=== PATIENT | male | born 1935 | race Caucasian/White ===

== ENCOUNTER 2016-08-22 09:32 | Outpatient (CLI) | payer MEDICARE ==
[2016-08-22 09:58] LABS: Hemoglobin 9.4 g/dL (14.0-18.0); Mean Corpuscular HGB CONC 32.8 g/dL (32.0-36.0); Mean Corpuscular Hemoglobin 28.5 pg (27.0-31.0); Mean Corpuscular Volume 86.9 fl (80.0-94.0); Mean Platelet Volume 5.9 fL (7.4-10.4); Platelet Count 381 thou/uL (130-400); Red Blood Cell (RBC) Count 3.29 mill/uL (4.70-6.10); White Blood Cell (WBC) Count 5.6 thou/uL (4.8-10.8)
== END 2016-08-22 09:33 | disposition home or self-care (01) ==
LOC: MADLAB 09:32
PROVIDERS: ATTEND Internal Medicine Gastroenterology
DX: D50.0 Iron deficiency anemia secondary to blood loss (chronic) (principal)
CPT/HCPCS: 36415; 85027

== ENCOUNTER 2016-09-04 09:31 | Outpatient (CLI) | payer MEDICARE ==
[2016-09-04 10:42] LABS: #Basophils 0.1 thou/uL (0.0-0.2); #Eosinphils 0.3 thou/uL (0.0-0.7); #Lymphocytes 2.7 thou/uL (1.20-3.40); #Neutrophils 2.8 thou/uL (1.40-6.50); %Basophils 1.5 % (0.0-1.0); %Eosinophils 3.8 % (0.0-10.0); %Lymphocytes 39.3 % (21.0-51.0); %Monocytes 14.9 % (0.0-10.0); %Neutrophils 40.5 % (42.0-75.0); Hemoglobin 9.5 g/dL (14.0-18.0); Mean Corpuscular HGB CONC 31.7 g/dL (32.0-36.0); Mean Corpuscular Hemoglobin 27.1 pg (27.0-31.0); Mean Corpuscular Volume 85.3 fl (80.0-94.0); Mean Platelet Volume 6.3 fL (7.4-10.4); Platelet Count 245 thou/uL (130-400); RBC Distribution Width 14.9 % (11.5-14.5); Red Blood Cell (RBC) Count 3.53 mill/uL (4.70-6.10); White Blood Cell (WBC) Count 6.8 thou/uL (4.8-10.8)
== END 2016-09-04 09:32 ==
LOC: MADLABBHPM 09:31
PROVIDERS: ATTEND Family Medicine
DX: K92.2 Gastrointestinal hemorrhage, unspecified (principal)
CPT/HCPCS: 85025

== ENCOUNTER 2016-12-04 13:32 | Outpatient (CLI) | payer MEDICARE ==
[2016-12-04 14:19] LABS: ALT (SGPT) 17 U/L (8-55); AST (SGOT) 19 U/L (5-34); Albumin 3.8 g/dL (3.4-4.8); Alkaline Phosphatase 70 U/L (40-150); Anion Gap 13 mmol/L (10-20); BUN (Urea Nitrogen) 23 mg/dL (8.4-25.7); Bilirubin, Total 0.3 mg/dL (0.2-1.2); Calc. Creatinine Clearance 0 mL/min (70-130); Calcium 8.7 mg/dL (7.8-10.44); Carbon Dioxide 23 mmol/L (23-31); Chloride 104 mmol/L (98-107); Estimated GFR-MDRD 55; Globulin 3.8 g/dL (2.4-3.5); Glucose 112 mg/dL (83-110); Potassium 4.4 mmol/L (3.5-5.1); Protein, Total 7.6 g/dL (5.8-8.1); Sodium 136 mmol/L (136-145)
[2016-12-04 14:49] LABS: Eosinophils 1 % (0-10); Hemoglobin 13.2 g/dL (14.0-18.0); Lymphocytes 46 % (21-51); MDiff Complete? YES; Mean Corpuscular HGB CONC 33.9 g/dL (32.0-36.0); Mean Corpuscular Hemoglobin 29.7 pg (27.0-31.0); Mean Corpuscular Volume 87.7 fl (80.0-94.0); Mean Platelet Volume 7.1 fL (7.4-10.4); Monocytes 13 % (0-10); Neutrophil 40 % (42-75); PLT Morphology Comment Appears Adequate; Platelet Count 193 thou/uL (130-400); RBC Distribution Width 17.2 % (11.5-14.5); Red Blood Cell (RBC) Count 4.42 mill/uL (4.70-6.10); White Blood Cell (WBC) Count 6.1 thou/uL (4.8-10.8)
== END 2016-12-04 13:33 ==
LOC: MADLABBHPM 13:32
PROVIDERS: ATTEND Family Medicine
DX: D50.9 Iron deficiency anemia, unspecified (principal); R53.1 Weakness
CPT/HCPCS: 36415; 80053; 82728; 85025

== ENCOUNTER 2017-04-08 07:49 | Emergency (ER) | payer MEDICARE ==
[2017-04-08] MEDS ORDERED: Sodium Chloride 0.9% 500 ML BAG ONE (08:38)
[2017-04-08 09:14] LABS: #Basophils 0.1 thou/uL (0.0-0.2); #Eosinphils 0.2 thou/uL (0.0-0.7); #Lymphocytes 1.3 thou/uL (1.20-3.40); #Monocytes 0.7 thou/uL (0.11-0.59); #Neutrophils 3.8 thou/uL (1.40-6.50); %Basophils 1.2 % (0.0-1.0); %Eosinophils 2.7 % (0.0-10.0); %Lymphocytes 20.9 % (21.0-51.0); %Monocytes 12.2 % (0.0-10.0); Hemoglobin 13.4 g/dL (14.0-18.0); Mean Corpuscular HGB CONC 33.6 g/dL (32.0-36.0); Mean Corpuscular Hemoglobin 31.3 pg (27.0-31.0); Mean Corpuscular Volume 93.3 fl (80.0-94.0); Platelet Count 187 thou/uL (130-400); Red Blood Cell (RBC) Count 4.28 mill/uL (4.70-6.10); White Blood Cell (WBC) Count 6.1 thou/uL (4.8-10.8)
[2017-04-08 09:28] LABS: ALT (SGPT) 16 U/L (8-55); AST (SGOT) 17 U/L (5-34); Albumin 3.7 g/dL (3.4-4.8); Alkaline Phosphatase 69 U/L (40-150); Anion Gap 12 mmol/L (10-20); BUN (Urea Nitrogen) 18 mg/dL (8.4-25.7); Bilirubin, Total 0.4 mg/dL (0.2-1.2); Calc. Creatinine Clearance 0 mL/min (70-130); Calcium 8.8 mg/dL (7.8-10.44); Carbon Dioxide 25 mmol/L (23-31); Chloride 106 mmol/L (98-107); Estimated GFR-MDRD 59; Globulin 4.1 g/dL (2.4-3.5); Glucose 156 mg/dL (83-110); Potassium 4.2 mmol/L (3.5-5.1); Protein, Total 7.8 g/dL (5.8-8.1); Sodium 139 mmol/L (136-145)
[2017-04-08 09:30] LABS: CKMB 2.3 ng/mL (0-6.6); Troponin I Less than 0.010 ng/mL (< 0.028)
--- NOTE | 2017-04-08 09:35 | RAD ---
FRONTAL VIEW CHEST: COMPARISON: 11/09/13. HISTORY: COPD. FINDINGS: There is no lobar consolidation. Diffuse interstitial prominence of each lung present. There is bl unting of each costophrenic sulcus. Cardiomediastinal silhouette is accentuated by portable techniq ue. IMPRESSION: Findings which may relate to mild decompensation of congestive heart failure with interstitial edema and small volume bilateral pleural effusions. Followup imaging may be obtained. POS: [facility]
[2017-04-08 09:41] LABS: Bilirubin Negative (Negative); Blood, Urine Negative (Negative); Clarity Clear (Clear); Glucose, Urine (Dipstick) Negative (Negative); Leukocyte Negative (Negative); Nitrite Negative (Negative); Protein, Urine (Dipstick) 30 mg/dL (Neg-Trace); Specific Gravity, Urine 1.025 (1.005-1.030); Urobilinogen 0.2 mg/dL (0.2-1.0)
[2017-04-08 09:44] LABS: Bacteria/HPF Rare-Few HPF (None Seen); Hyaline Casts/LPF 0-3 HYALINE CAST LPF (0-3 Hyaline); RBC/HPF 0-3 HPF (0-3); Sperm/HPF Rare HPF (None Seen); Squamous Epithelial 0-3 HPF (0-3)
[2017-04-08 09:45] LABS: Other Casts/LPF 0-3 COARSE GRAN LPF (0-3 Hyaline); WBC/HPF None Seen HPF (0-3)
== END 2017-04-08 11:05 | disposition home or self-care (01) ==
LOC: MADERS 07:49
DX: R42 Dizziness and giddiness (principal); E78.00 Pure hypercholesterolemia, unspecified; I48.91 Unspecified atrial fibrillation; K21.9 Gastro-esophageal reflux disease without esophagitis; Z79.82 Long term (current) use of aspirin; Z79.899 Other long term (current) drug therapy
CPT/HCPCS: 71010; 80053; 81003; 81015; 82553; 84484; 85025; 93005; J7050

== ENCOUNTER 2017-09-17 10:33 | Outpatient (CLI) | payer MEDICARE ==
--- NOTE | 2017-09-17 12:59 | RAD ---
PA AND LATERAL CHEST: HISTORY: Cough. COMPARISON: 04/08/2017 and 11/09/2013 FINDINGS: Heart size is within normal limits. There is interstitial lung change, a few of which I feel are mos t likely interstitial fibrotic lung change. The interstitial changes are slightly more prominent roderick n on the previous exams, but I think this is probably largely technique related. There is no conflue nt infiltrative process seen. IMPRESSION: Interstitial fibrotic lung change. POS: C
== END 2017-09-17 10:34 | disposition home or self-care (01) ==
LOC: MADLAB 10:33
PROVIDERS: ATTEND Family Medicine
DX: R05 Cough (principal); J98.4 Other disorders of lung
CPT/HCPCS: 71046

== ENCOUNTER 2017-09-23 13:11 | Emergency (ER) | payer MEDICARE ==
[2017-09-23] MEDS ORDERED: Bacitracin Zinc 1 Packet ONE (13:34)
== END 2017-09-23 13:45 | disposition home or self-care (01) ==
LOC: MADERS 13:11
DX: L03.113 Cellulitis of right upper limb (principal); I48.91 Unspecified atrial fibrillation; K21.9 Gastro-esophageal reflux disease without esophagitis; Z79.82 Long term (current) use of aspirin; Z79.899 Other long term (current) drug therapy
CPT/HCPCS: 99283; J7620

== ENCOUNTER 2017-11-11 08:47 | Emergency (ER) | payer MEDICARE, OTHER ==
[~2017-11-11 08:47] MED LIST: Sodium Chloride 0.9% 1,000 ML BAG ONE
[2017-11-11] MEDS ORDERED: Ketorolac Tromethamine 30 MG/ML VIAL ONE (09:15)
[2017-11-11] MEDS ORDERED: Ondansetron HCl/PF 4 MG/2 ML Vial ONE (09:15)
[2017-11-11] MEDS ORDERED: Metoclopramide HCl 10 MG/2 ML VIAL ONE (09:15)
[2017-11-11 09:39] LABS: #Basophils 0.1 thou/uL (0.0-0.2); #Lymphocytes 1.1 thou/uL (1.20-3.40); #Neutrophils 8.5 thou/uL (1.40-6.50); %Basophils 0.5 % (0.0-1.0); %Eosinophils 0.1 % (0.0-10.0); %Lymphocytes 10.3 % (21.0-51.0); %Monocytes 9.6 % (0.0-10.0); %Neutrophils 79.4 % (42.0-75.0); Mean Corpuscular HGB CONC 34.5 g/dL (32.0-36.0); Mean Corpuscular Hemoglobin 31.5 pg (27.0-31.0); Mean Corpuscular Volume 91.2 fl (80.0-94.0); Mean Platelet Volume 6.9 fL (7.4-10.4); Platelet Count 194 thou/uL (130-400); RBC Distribution Width 12.1 % (11.5-14.5); Red Blood Cell (RBC) Count 4.43 mill/uL (4.70-6.10); White Blood Cell (WBC) Count 10.7 thou/uL (4.8-10.8)
[2017-11-11 09:52] LABS: ALT (SGPT) 16 U/L (8-55); AST (SGOT) 17 U/L (5-34); Albumin 3.6 g/dL (3.4-4.8); Alkaline Phosphatase 60 U/L (40-150); Anion Gap 12 mmol/L (10-20); BUN (Urea Nitrogen) 15 mg/dL (8.4-25.7); Bilirubin, Total 0.7 mg/dL (0.2-1.2); Calc. Creatinine Clearance 0 mL/min (70-130); Calcium 8.7 mg/dL (7.8-10.44); Carbon Dioxide 23 mmol/L (23-31); Chloride 103 mmol/L (98-107); Estimated GFR-MDRD 56; Globulin 4.4 g/dL (2.4-3.5); Glucose 164 mg/dL (83-110); Potassium 4.1 mmol/L (3.5-5.1); Sodium 134 mmol/L (136-145)
[2017-11-11 10:13] LABS: Bacteria/HPF Rare-Few HPF (None Seen); Bilirubin Negative (Negative); Blood, Urine Negative (Negative); Clarity Clear (Clear); Glucose, Urine (Dipstick) Negative (Negative); Leukocyte Negative (Negative); Nitrite Negative (Negative); Protein, Urine (Dipstick) 100 mg/dL (Neg-Trace); RBC/HPF 0-3 HPF (0-3); Squamous Epithelial 0-3 HPF (0-3); Urobilinogen 0.2 mg/dL (0.2-1.0); WBC/HPF 0-3 HPF (0-3)
--- NOTE | 2017-11-11 12:04 | RAD ---
PORTABLE UPRIGHT FRONTAL CHEST RADIOGRAPH: Date: 11-11-17 Comparison: 09-17-17 History: Nausea, vomiting. FINDINGS: There is increased linear interstitial density noted throughout both lungs, stable. There is no pneum othorax or pleural fluid and no focal consolidation or alveolar edema. Heart and mediastinal contours are stable. IMPRESSION: Stable increased linear interstitial density with no focal consolidation or alveolar edema. POS: [facility]
== END 2017-11-11 11:10 | disposition home or self-care (01) ==
LOC: MADERS 08:47
DX: B34.9 Viral infection, unspecified (principal); E78.00 Pure hypercholesterolemia, unspecified; K21.9 Gastro-esophageal reflux disease without esophagitis; I48.91 Unspecified atrial fibrillation; Z79.82 Long term (current) use of aspirin; Z79.899 Other long term (current) drug therapy
CPT/HCPCS: 71045; 80053; 81001; 83880; 85025; 87086; 96361; 96374; 96375; J1885; J2405; J2765; J7050

== ENCOUNTER 2017-11-12 14:54 | Outpatient (CLI) | payer MEDICARE, OTHER ==
--- NOTE | 2017-11-12 16:08 | RAD ---
CHEST 2 VIEWS: Date: 11/12/17 HISTORY: Cough. COMPARISON: Chest radiograph from prior day. FINDINGS: Pleural and parenchymal scarring is similar. Fibrotic changes are present in the lungs. No focal air space consolidation, pneumothorax, or effusion. IMPRESSION: Chronic changes are stable. No acute intrathoracic abnormality. POS: [facility]
== END 2017-11-12 14:55 | disposition home or self-care (01) ==
LOC: MADRAD 14:54
PROVIDERS: ATTEND Family Medicine
DX: R05 Cough (principal); J98.4 Other disorders of lung
CPT/HCPCS: 71046

== ENCOUNTER 2019-03-21 11:16 | Emergency (ER) | payer MEDICARE ==
[~2019-03-21 11:16] MED LIST changes: +Metoprolol Tartrate 5 MG/5 ML VIAL ONE
[2019-03-21 11:53] LABS: #Basophils 0.1 thou/uL (0.0-0.2); #Eosinphils 0.4 thou/uL (0.0-0.7); #Lymphocytes 1.9 thou/uL (1.20-3.40); #Monocytes 1.4 thou/uL (0.11-0.59); %Basophils 0.6 % (0.0-1.0); %Lymphocytes 15.3 % (21.0-51.0); %Monocytes 10.9 % (0.0-10.0); %Neutrophils 70.3 % (42.0-75.0); Hemoglobin 12.4 g/dL (14.0-18.0); Mean Corpuscular HGB CONC 32.1 g/dL (32.0-36.0); Mean Corpuscular Hemoglobin 30.1 pg (27.0-31.0); Mean Corpuscular Volume 93.8 fL (78.0-98.0); Mean Platelet Volume 6.5 fL (7.4-10.4); Platelet Count 304 thou/uL (130-400); RBC Distribution Width 12.8 % (11.5-14.5); White Blood Cell (WBC) Count 12.7 thou/uL (4.8-10.8)
--- NOTE | 2019-03-21 11:57 | RAD ---
RADIOGRAPH CHEST 1 VIEW: DATE: 03/21/2019 TIME: 11:53 AM HISTORY: 84-year-old male with dyspnea COMPARISON: 01/07/2019 FINDINGS: Diffuse chronic moderate to severe interstitial infiltrates. No cardiomegaly. No new consolidation or pneumothorax. No interval change overall. IMPRESSION: Chronic interstitial lung disease: Pulmonary fibrosis.
[2019-03-21] MEDS ORDERED: Metoprolol Tartrate 5 MG/5 ML VIAL ONE (12:05)
[2019-03-21 12:13] LABS: ALT (SGPT) 25 U/L (8-55); AST (SGOT) 18 U/L (5-34); Albumin 3.1 g/dL (3.4-4.8); Alkaline Phosphatase 85 U/L (40-150); Anion Gap 14 mmol/L (10-20); BUN (Urea Nitrogen) 27 mg/dL (8.4-25.7); Bilirubin, Total Less than 0.2 mg/dL (0.2-1.2); CK (CPK) 36 U/L (30-200); Calc. Creatinine Clearance 0 mL/min (70-130); Carbon Dioxide 26 mmol/L (23-31); Chloride 100 mmol/L (98-107); Estimated GFR-MDRD 87; Globulin 3.8 g/dL (2.4-3.5); Glucose 106 mg/dL (83-110); Potassium 4.5 mmol/L (3.5-5.1); Protein, Total 6.9 g/dL (5.8-8.1); Sodium 135 mmol/L (136-145)
[2019-03-21 12:55] LABS: Bilirubin Negative (Negative); Blood, Urine Negative (Negative); Clarity Clear (Clear); Glucose, Urine (Dipstick) Negative (Negative); Leukocyte Negative (Negative); Nitrite Negative (Negative); Protein, Urine (Dipstick) Negative (Neg-Trace); Urobilinogen 0.2 mg/dL (Less than 2)
== END 2019-03-21 18:00 | disposition short-term general hospital (02) ==
LOC: MADERS 11:16
DX: R00.0 Tachycardia, unspecified (principal); E86.0 Dehydration; C76.0 Malignant neoplasm of head, face and neck; I95.89 Other hypotension; I48.91 Unspecified atrial fibrillation; E78.00 Pure hypercholesterolemia, unspecified; K21.9 Gastro-esophageal reflux disease without esophagitis; Z79.899 Other long term (current) drug therapy
CPT/HCPCS: 36415; 51702; 71045; 80053; 81003; 82550; 83605; 84443; 84484; 85025; 87040; 87086; 93005; 94760; 96361; 96374; 96376; 99292; J7050

== ENCOUNTER 2019-03-30 10:30 | Emergency (ER) | payer MEDICARE ==
--- NOTE | 2019-03-30 10:58 | RAD ---
EXAM: Portable chest PROVIDED CLINICAL HISTORY: Cough COMPARISON: 03/21/2019 FINDINGS: Cardiac and mediastinal silhouette is within normal limits. No focal consolidation, pleural fluid or pneumothorax evident. Extensive bilateral interstitial opacities are again noted, appearing similar to prior. IMPRESSION: No evidence for an acute cardiopulmonary process.
== END 2019-03-30 11:38 | disposition home or self-care (01) ==
LOC: MADERS 10:30
DX: R13.10 Dysphagia, unspecified (principal); I49.9 Cardiac arrhythmia, unspecified; I48.91 Unspecified atrial fibrillation; E78.00 Pure hypercholesterolemia, unspecified; K21.9 Gastro-esophageal reflux disease without esophagitis; Z85.828 Personal history of other malignant neoplasm of skin
CPT/HCPCS: 71045

== ENCOUNTER 2019-04-01 15:24 | Emergency (ER) | payer MEDICARE, OTHER ==
--- NOTE | 2019-04-01 16:47 | RAD ---
Exam: 1 view abdomen HISTORY: G-tube check COMPARISON: none FINDINGS: Percutaneous feeding tube opacifies the gastric antrum. Contrast flows in a antegrade fashi on and opacifies multiple small bowel loops. IMPRESSION: Percutaneous feeding catheter as above.
== END 2019-04-01 17:10 | disposition home or self-care (01) ==
LOC: MADERS 15:24
DX: R09.89 Other specified symptoms and signs involving the circulatory and respiratory systems (principal); Z43.1 Encounter for attention to gastrostomy; I49.9 Cardiac arrhythmia, unspecified; I48.91 Unspecified atrial fibrillation; K21.9 Gastro-esophageal reflux disease without esophagitis; E78.00 Pure hypercholesterolemia, unspecified; Z79.899 Other long term (current) drug therapy
CPT/HCPCS: 74019

== ENCOUNTER 2019-07-01 12:46 | Emergency (ER) | payer MEDICARE, OTHER ==
[~2019-07-01 12:46] MED LIST changes: -Metoprolol Tartrate 5 MG/5 ML VIAL ONE
[2019-07-01 13:30] LABS: ALT (SGPT) 32 U/L (8-55); AST (SGOT) 24 U/L (5-34); Alkaline Phosphatase 114 U/L (40-110); Anion Gap 16 mmol/L (10-20); BUN (Urea Nitrogen) 28 mg/dL (8.4-25.7); Bilirubin, Total 0.2 mg/dL (0.2-1.2); Calc. Creatinine Clearance 0 mL/min (70-130); Calcium 8.5 mg/dL (7.8-10.44); Carbon Dioxide 25 mmol/L (23-31); Chloride 103 mmol/L (98-107); Estimated GFR-MDRD 83; Globulin 5.2 g/dL (2.4-3.5); Glucose 131 mg/dL (83-110); Potassium 4.6 mmol/L (3.5-5.1); Protein, Total 8.2 g/dL (5.8-8.1); Sodium 139 mmol/L (136-145)
--- NOTE | 2019-07-01 13:31 | RAD ---
XR Chest 1 View Portable HISTORY: Dyspnea COMPARISON: 05/20/2019 FINDINGS: The heart size is normal. The lungs are well expanded without focal areas of consolidation, pneumothorax or pleural effusions. Chronic parenchymal changes are again seen. IMPRESSION: No radiographic evidence of acute cardiopulmonary process.
[2019-07-01 13:48] LABS: Eosinophils 2 % (0-10); Hemoglobin 13.2 g/dL (14.0-18.0); Lymphocytes 5 % (21-51); MDiff Complete? YES; Mean Corpuscular HGB CONC 30.7 g/dL (32.0-36.0); Mean Corpuscular Hemoglobin 28.9 pg (27.0-31.0); Mean Corpuscular Volume 94.1 fL (78.0-98.0); Mean Platelet Volume 6.5 fL (7.4-10.4); Monocytes 9 % (0-10); Neutrophil 59 % (42-75); Platelet Count 400 thou/uL (130-400); Platelet Morphology Comment Appears Adequate; RBC Distribution Width 13.9 % (11.5-14.5); RBC Morphology Normal; Reactive Lymphocytes 25 % (0-10); Red Blood Cell (RBC) Count 4.55 mill/uL (4.70-6.10); White Blood Cell (WBC) Count 9.5 thou/uL (4.8-10.8)
[2019-07-01 13:50] LABS: CKMB 1.1 ng/mL (0-6.6)
--- NOTE | 2019-07-01 14:32 | CT ---
CT BRAIN WITHOUT CONTRAST: HISTORY: Confusion and weakness that began last night. COMPARISON: 05/20/2019 TECHNIQUE: Multiple contiguous axial images were obtained in a CT of the brain without contrast. FINDINGS: There are scattered hypodensities in the subcortical and periventricular white matter, likely seconda ry to small vessel ischemic disease. No large confluent infarction is seen. There is no evidence of h ydrocephalus, intracranial hemorrhage or extraaxial fluid collection. The calvarium and overlying soft tissues are unremarkable. The visualized paranasal sinuses and masto id air cells are well aerated. IMPRESSION: No evidence of acute intracranial abnormality. POS: OFF
--- NOTE | 2019-07-01 15:28 | CT ---
CT PULMONARY ANGIOGRAM WITH IV CONTRAST AND 3D POST PROCESSING: HISTORY: Dyspnea. Elevated D-dimer. 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 COMPARISON: 03/21/2019 FINDINGS: There is good contrast opacification in the pulmonary arterial vasculature without filling defects to suggest pulmonary embolism. The thoracic aorta is well opacified without aneurysm or dissection. No pleural or pericardial effusions are seen. Changes of pulmonary fibrosis are again noted. There are d egenerative changes in the spine. IMPRESSION: No CT evidence of pulmonary embolism. POS: [facility]
[2019-07-01 16:32] LABS: Troponin I 0.035 ng/mL (< 0.028)
[2019-07-01] MEDS ORDERED: Acetaminophen/Codeine 30-300mg Tablet ONE (16:36)
== END 2019-07-01 17:00 | disposition home or self-care (01) ==
LOC: MADERS 12:46
DX: R06.00 Dyspnea, unspecified (principal); R41.0 Disorientation, unspecified; I49.9 Cardiac arrhythmia, unspecified; I48.91 Unspecified atrial fibrillation; E78.00 Pure hypercholesterolemia, unspecified; K21.9 Gastro-esophageal reflux disease without esophagitis; Z79.899 Other long term (current) drug therapy
CPT/HCPCS: 36415; 70450; 71045; 71275; 80053; 82553; 83880; 84484; 85025; 85379; 93005; 94760; 96360; 96361; J7050

== ENCOUNTER 2019-07-23 11:46 | Inpatient (IN) | payer MEDICARE, OTHER ==
[~2019-07-23 11:46] MED LIST changes: +Iopamidol 370 76% 100 ML VIAL ONE; -Sodium Chloride 0.9% 1,000 ML BAG ONE
--- NOTE | 2019-07-23 12:18 | RAD ---
EXAM: Single view of the chest HISTORY: Dyspnea COMPARISON: 07/01/2019 FINDINGS: Single view of the chest shows a normal sized cardiomediastinal silhouette. Diffuse increa sed interstitial markings are stable. There is no evidence of consolidation, mass, or pleural effusion. The bones are unremarkable. IMPRESSION: No evidence of acute cardiopulmonary disease
[2019-07-23 12:46] LABS: #Basophils 0.1 thou/uL (0.0-0.2); #Eosinphils 0.1 thou/uL (0.0-0.7); #Lymphocytes 1.1 thou/uL (1.20-3.40); #Monocytes 1.3 thou/uL (0.11-0.59); %Basophils 0.7 % (0.0-1.0); %Eosinophils 0.9 % (0.0-10.0); %Lymphocytes 10.3 % (21.0-51.0); %Monocytes 12.4 % (0.0-10.0); %Neutrophils 75.6 % (42.0-75.0); Hemoglobin 12.9 g/dL (14.0-18.0); Mean Corpuscular HGB CONC 30.5 g/dL (32.0-36.0); Mean Corpuscular Hemoglobin 29.1 pg (27.0-31.0); Mean Corpuscular Volume 95.3 fL (78.0-98.0); Mean Platelet Volume 8.2 fL (7.4-10.4); Platelet Count 286 thou/uL (130-400); RBC Distribution Width 14.2 % (11.5-14.5); Red Blood Cell (RBC) Count 4.45 mill/uL (4.70-6.10); White Blood Cell (WBC) Count 10.6 thou/uL (4.8-10.8)
[2019-07-23 13:00] LABS: ALT (SGPT) 25 U/L (8-55); AST (SGOT) 28 U/L (5-34); Alkaline Phosphatase 97 U/L (40-110); Anion Gap 15 mmol/L (10-20); BUN (Urea Nitrogen) 23 mg/dL (8.4-25.7); Bilirubin, Total 0.4 mg/dL (0.2-1.2); CK (CPK) 29 U/L (30-200); Calc. Creatinine Clearance 0 mL/min (70-130); Calcium 8.6 mg/dL (7.8-10.44); Carbon Dioxide 24 mmol/L (23-31); Chloride 100 mmol/L (98-107); Estimated GFR-MDRD Greater than 90; Globulin 5.5 g/dL (2.4-3.5); Glucose 142 mg/dL (83-110); Lipase 27 U/L (8-78); Potassium 4.8 mmol/L (3.5-5.1); Protein, Total 8.5 g/dL (5.8-8.1); Sodium 134 mmol/L (136-145)
--- NOTE | 2019-07-23 14:07 | CT ---
CT Abdomen Pelvis W Con: 07/23/2019 1:23 PM CLINICAL INFORMATION: Nausea and vomiting for one day COMPARISON: None. TECHNIQUE: Multiple contiguous axial images were obtained and a CT of the abdomen and pelvis with IV contrast. C oronal and sagittal reformats were performed. FINDINGS: Lower Chest: Increased interstitial lung markings and atelectasis are seen in the lung bases. Abdomen: Liver: within normal limits. Bile Ducts: Normal caliber. Gallbladder: No calcified gallstones. Normal caliber wall. Pancreas: within normal limits. Spleen: within normal limits. Adrenals: within normal limits. Kidneys: 1.7 cm left renal cyst. Pelvis: Reproductive Organs: No pelvic masses. Ureters: within normal limits. Bladder: within normal limits. Peritoneum: No ascites or free air, no fluid collection. Bowel: Normal caliber. Gastrostomy tube in the stomach. Mesentery and Retroperitoneum: No enlarged mesenteric or retroperitoneal lymph nodes. Vessels: Atherosclerotic calcifications. Abdominal Wall: within normal limits. Bones: Degenerative changes in the spine. IMPRESSION: 1. No evidence of acute intraabdominal or pelvic abnormality. 2. Left renal cyst
[2019-07-23 14:55] LABS: Bilirubin Negative (Negative); Blood, Urine Negative (Negative); Glucose, Urine (Dipstick) Negative (Negative); Leukocyte Negative (Negative); Nitrite Negative (Negative); Protein, Urine (Dipstick) 30 mg/dL (Neg-Trace); Urobilinogen 0.2 mg/dL (Less than 2)
[2019-07-23 14:56] LABS: Clarity Hazy (Clear)
[2019-07-23 15:01] LABS: RBC/HPF 0-3 HPF (0-3); Squamous Epithelial 0-3 HPF (0-3); WBC/HPF 0-3 HPF (0-3)
[2019-07-23 15:02] LABS: Bacteria/HPF Rare-Few HPF (None Seen)
[2019-07-23] MEDS ORDERED: Acetaminophen 325 MG TAB PER TUBE PRN (17:09)
[2019-07-23] MEDS ORDERED: Loperamide HCl 2 MG CAP PER TUBE PRN ×2 (17:09)
[2019-07-23] MEDS ORDERED: Ondansetron PF 4 MG/2 ML Vial SLOW IVP PRN (17:09)
[2019-07-23] MEDS: Sodium Chloride 0.9% 1,000 ML IV SCH (17:46)
[2019-07-23] MEDS ORDERED: Pancrelipase DR 12000 1 CAP FS PRN (18:26)
[2019-07-23] MEDS ORDERED: Sodium Bicarbonate Tab 325 MG TAB PER TUBE PRN (18:26)
[2019-07-23] MEDS: GABAPENTIN 100 MG CAP PER TUBE SCH (20:55)
[2019-07-23] MEDS ORDERED: METOCLOPRAMIDE 5 MG TAB PER TUBE SCH (21:00)
[2019-07-23] MEDS: PHENYLEPHRINE PER TUBE SCH (21:20)
[2019-07-23] MEDS: GUAIFENESIN PER TUBE SCH (21:20)
[2019-07-23] MEDS: DEXTROMETHORPHAN PER TUBE SCH (21:20)
[2019-07-23] MEDS ORDERED: METOCLOPRAMIDE 5 MG/5 ML PER TUBE SCH (21:30)
[2019-07-23] MEDS ORDERED: Nystatin 500,000 UNITS/5 ML UDCUP SSP SCH (21:30)
[2019-07-23] MEDS ORDERED: [UNRECOGNIZED DRUG - OTHER] EA NARE SCH (21:30)
[2019-07-24] MEDS: Sodium Chloride 0.9% 1,000 ML IV SCH (05:33)
[2019-07-24 06:07] LABS: Anion Gap 13 mmol/L (10-20); BUN (Urea Nitrogen) 16 mg/dL (8.4-25.7); Calc. Creatinine Clearance 68 mL/min (70-130); Calcium 8.3 mg/dL (7.8-10.44); Carbon Dioxide 20 mmol/L (23-31); Chloride 103 mmol/L (98-107); Estimated GFR-MDRD Greater than 90; Glucose 151 mg/dL (83-110); Potassium 4.3 mmol/L (3.5-5.1); Sodium 132 mmol/L (136-145)
[2019-07-24 06:18] LABS: #Basophils 0.1 thou/uL (0.0-0.2); #Eosinphils 0.4 thou/uL (0.0-0.7); #Lymphocytes 1.5 thou/uL (1.20-3.40); #Neutrophils 5.8 thou/uL (1.40-6.50); %Basophils 0.8 % (0.0-1.0); %Eosinophils 4.5 % (0.0-10.0); %Lymphocytes 17.3 % (21.0-51.0); %Monocytes 11.4 % (0.0-10.0); Hemoglobin 10.7 g/dL (14.0-18.0); Mean Corpuscular HGB CONC 30.9 g/dL (32.0-36.0); Mean Corpuscular Hemoglobin 29.5 pg (27.0-31.0); Mean Corpuscular Volume 95.7 fL (78.0-98.0); Platelet Count 274 thou/uL (130-400); RBC Distribution Width 14.4 % (11.5-14.5); Red Blood Cell (RBC) Count 3.62 mill/uL (4.70-6.10); White Blood Cell (WBC) Count 8.8 thou/uL (4.8-10.8)
[2019-07-24] MEDS ORDERED: METOCLOPRAMIDE 5 MG/5 ML PER TUBE SCH ×2 (07:30→09:00)
[2019-07-24] MEDS ORDERED: METOCLOPRAMIDE 5 MG/5 ML PER TUBE PRN (08:11)
[2019-07-24] MEDS: Nystatin 500,000 UNITS/5 ML UDCUP SSP SCH ×4 (08:45→21:37)
[2019-07-24] MEDS: PATADAY 0.2% EA EYE SCH (08:46)
[2019-07-24] MEDS: OPTH EA EYE SCH (08:46)
[2019-07-24] MEDS: [UNRECOGNIZED DRUG - OTHER] EA NARE SCH ×2 (08:46→21:53)
[2019-07-24 14:04] VITALS: BMI 19.5
[2019-07-24] MEDS: DEXTROMETHORPHAN PER TUBE SCH (21:52)
[2019-07-24] MEDS: GUAIFENESIN PER TUBE SCH (21:52)
[2019-07-24] MEDS: PHENYLEPHRINE PER TUBE SCH (21:52)
[2019-07-24] MEDS: GABAPENTIN 100 MG CAP PER TUBE SCH (21:55)
[2019-07-25 06:51] VITALS: BP 114/65; TEMP 97.9
[2019-07-25] MEDS: [UNRECOGNIZED DRUG - OTHER] EA NARE SCH (09:19)
[2019-07-25] MEDS: Nystatin 500,000 UNITS/5 ML UDCUP SSP SCH (09:19)
[2019-07-25] MEDS: PATADAY 0.2% EA EYE SCH (09:20)
[2019-07-25] MEDS: OPTH EA EYE SCH (09:20)
--- NOTE | 2019-07-25 15:54 | HP ---
CHIEF COMPLAINT: Dehydrated. HISTORY OF PRESENT ILLNESS: The patient is an 84-year-old white male, who was brought into the emergency room because family felt like he was dehydrated. 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 He has had a PEG tube placed and he has been unable to take any oral feeding since then and his nutrition and his hydration has been through the feeding tube since then. He has been very active and has had trouble maintaining his hydration and nutrition with his tube feeding ever since. Periodically, he gets into trouble with his tube feedings and has to have IV fluids. Most recently, he had one episode of vomiting on 2018, that was accompanied by formula and then again on the morning of the day of admission and one episode of diarrhea. He has had none since. His said that occasionally, he will develop some thick mucus in his throat, for which he will take Mucinex per G-tube and in the efforts to cough this up, he will have some vomiting. Lately, he has been on a feeding schedule of Isosource 1.5 calories/mL 250 mL with Fibersource 1.2 calories/mL 250 mL bolus every 3 hours during the day along with water 30 mL before the feeding followed by 170 mL of water after the feeding. He was brought to the emergency room on the day of admission because he seem much weaker, was not able to get up and around like he usually does, and seemed weak and lightheaded. This is usually the way he does when he is dehydrated. In the emergency room, he was evaluated. Underwent a chest x-ray, which was clear. His CT scan of the abdomen was unremarkable, except for left renal cyst. His lab work showed CBC with H and H of 12.9 and 42.4, white cell count of 10,600 with 76% segs, 10% lymphocytes, and a platelet count of 286,000. His sodium is 134, potassium 4.8, BUN 23, creatinine 0.78, GFR greater than 90. Glucose 142, nonfasting. Lactic acid 1.6, creatine kinase 29, albumin 3.0, lipase 27. UA shows a specific gravity of 1.015, pH 6.5, nitrite negative, 0 to 3 RBCs, 0 to 3 WBCs. The patient was admitted to the hospital and started on IV fluids with normal saline at 75 mL/h. He was kept n.p.o. and he was placed on a feeding schedule of Fibersource 1.2 calories/mL at 8 ounces by bolus every 4 hours with water 60 mL before feeding and 60 mL after feeding on the morning of 07/24/2018. Nurses report that the feedings have gone very well. He has had no trouble with this. The patient said he feels good this morning. His stayed with him and was able to relate the history. The patient has been alert and talkative also, and said he feels a lot better. Dietitian is due to see patient this morning. His repeat lab work this morning shows his sodium is 132, potassium 4.3, BUN is 16, creatinine 0.69, GFR greater than 90, glucose 151. H and H 10.7 and 34.7, white blood cell count 8800. 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 This was followed by chemoradiation and also a PEG, which provides his hydration and nutrition. The patient has paroxysmal atrial fibrillation, pulmonary fibrosis with chronic hypoxemia, requiring supplemental O2, GERD, amputation of the right fourth digit, hypercholesterolemia, had surgery on his ankle, cataract surgery bilateral. PRESENT MEDICINES: 1. Flomax 0.4 mg per G-tube daily. 2. Gabapentin 100 mg at bedtime. 3. Metoclopramide 5 mg/5 mL, 1 mL q.i.d. 4. Mucinex 20 mL at bedtime. 5. Mycostatin 500,000 units to swish and spit four times a day. 6. Pataday 0.2% ophthalmic solution one drop in each eye daily. 7. nasal spray one spray in each naris b.i.d. 8. Tylenol 650 mg per G-tube every 4 hours as needed. ALLERGIES: NO KNOWN ALLERGIES. REVIEW OF SYSTEMS: CONSTITUTIONAL: The patient and does not think he has had any recent weight gain or loss. HEAD AND NECK: No complaint, except there is dry mouth and crusting on the tongue, which is chronic. PULMONARY: No shortness of breath. Has to use his oxygen all the time. Presently, he is not using water on his tubing for the oxygen. CARDIOVASCULAR: No complaints. GASTROINTESTINAL: No abdominal pain. GENITOURINARY: No complaints. ADLS: The patient is ambulatory, able to dress himself, is not able to swallow. Does not take any food or water by mouth. HABITS: Alcohol, none. Tobacco, none. CODE STATUS: DNR. PHYSICAL EXAMINATION: GENERAL: Shows a very pleasant 84-year-old male, who is talkative. He is alert , appears in no acute distress. VITAL SIGNS: Show a temperature of 98.1, pulse 78, respirations 16, O2 saturation 94% on 3 L, blood pressure 111/56. His weight is 136. Height 5 feet 8 inches. HEENT: Head, normocephalic, atraumatic. Eyes, pupils are equal, round, and reactive. Lateral intraocular lens implants. Ears, TMs are clear. Nose, normal. Mouth and throat, the mucosa of the mouth is dry. There is crusting that is brown and sin appearance over the tongue. There is deformity over the right mandible from his previous surgery and resection at the area of the angle of the mandible. NECK: No adenopathy. LUNGS: Clear. HEART: Regular rate. No murmurs. ABDOMEN: There is a G-tube present. There is a little crusting around the G- tube. Abdomen is scaphoid. There is no organomegaly nor areas of tenderness. EXTREMITIES: There is long incision along the right thigh at the site of the donor site for graft for his mandible surgery. There is no swelling in the legs. NEUROLOGIC: The patient is alert, talkative, and oriented x3. He has no focal weakness. IMPRESSION: 1. Dehydration. a. Improved. 2. Vomiting and episode of diarrhea. a. Suspect related to feeding tube difficulties. b. Resolved. 3. PEG tube dependent. 4. 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 a. Status post partial resection of the right mandible in January of 2019, followed by chemoradiation therapy. b. Severe dysphagia, requiring PEG tube for all his hydration and nutrition since January. 5. Severe dysphagia. a. PEG tube dependent since January of 2019. 6. Paroxysmal atrial fibrillation. 7. Pulmonary fibrosis. a. Complicated by chronic hypoxemia, requiring supplemental O2. PLAN: The patient looks better this morning according to his . The patient may have been getting too much volume of formula and fluid at a time that may have caused some reflux and resultant vomiting. I have the changed this formula to Fibersource 1.2 calories/mL 8 ounces every 4 hours, which will provide 1728 calories per 24 hours. We will give him water 60 mL before and after each feeding, which will provide 720 mL of water per 24 hours. Dietitian will see the patient and will see her suggestions. If this is well tolerated, will modify this to help stretch the nighttime feedings to assist his since she will be the one handling this. For the dryness in the mouth, would suggest humidification of his oxygen humidifier in the room, utilize Biotene spray for the mouth, mouth care, also care of the G-tube site and adequate hydration. We will have PT work with the patient. We will discontinue his IV fluids. We will review with the patient's this care plan and also with his home health care service and tentatively will plan on his discharge tomorrow. Job ID: [id number] MTDD
--- NOTE | 2019-07-25 15:56 | DIS ---
DATE OF ADMISSION: 07/23/2019 DATE OF DISCHARGE: 07/25/2019 FINAL DIAGNOSES: 1. Dehydration. a. Secondary to nausea and vomiting and inadequate fluid intake. 2. Cancer of the head and neck, squamous cell carcinoma involving the right mandible. a. Status post partial resection of the mandible followed by radiation therapy and chemotherapy January of 2019. 3. Severe dysphagia. a. Secondary to his head and neck surgery and radiation therapy in January of 2019. b. Status post PEG tube placement, January 2019. c. Dependent upon PEG tube for nutrition and hydration. 4. Pulmonary fibrosis. a. Complicated by hypoxemia, requiring supplemental O2. HISTORY OF PRESENT ILLNESS: The patient is an 84-year-old white male, who has a history of a head and neck cancer as a squamous cell carcinoma involving the right mandible. He underwent a partial resection of the mandible at the angle of the mandible in January 2019, followed by radiation and chemotherapy at [facility], and also placement of a PEG tube. He has been left with severe dysphagia and required a PEG tube placement in January of 2019. He has been dependent upon that PEG tube for all his nutrition and hydration. He also has a history of pulmonary fibrosis complicated by hypoxemia, requiring supplemental O2. He has been able to maintain active life, but has had a lot of trouble with his feeding and gets dehydrated very easily. He had had an episode of vomiting the day before admission and the day of admission, and one episode of very loose runny bowel movement. He had recently undergone a change in his feeding schedule that just did not seem to be working out very well. When he gets to hydrate, he gets very weak and just cannot hardly get around or do anything. He is brought into the emergency room, underwent chest x-ray, CT scan of the abdomen, all of which were negative other than some cyst in the left kidney. He was started on IV fluids and admitted and per my instruction, was started on a feeding schedule of Fibersource HN 8 ounces every 4 hours and water 60 mL before and after each feeding. The patient was seen that following morning with his . At that time, he was doing better. His mouth was found to be very dry. His lungs are nice and clear. It was felt like the patient had become mildly dehydrated as a result of the two episodes of vomiting and the one large watery bowel movement. He was not receiving a feeding schedule that is very compatible with the patient and he may have been getting overfilled, that led to the vomiting and also then led to the inadequate fluid intake from the vomiting. Apparently , he has had trouble like this before and it has been difficulty coordinating with the dietitian at [facility] living up here. They do not have a physician locally or local dietitian, hence when problems occur, it has been difficult to get answers timely. On examination, the patient's mouth was very, very dry. His lungs were clear. He was talkative, and appeared in no distress. I reviewed with the patient while there, a schedule to try to help improve the moisture in his mouth by adding humidification to his oxygen, which he was not doing, having him use a Biotene spray for the mouth to help moisturize it, clean the mouth good with swabs to help keep it clean and moist, and then changing his feeding schedule to help keep him well moisturized. Dietitian visited with him and we locked in on a schedule that I think will work well for them. We will give him Fibersource HN 1.2 calories/mL 12 ounces every 4 hours during the day that is 4 feedings during his waking hours with 90 mL of water before and after each feeding. This will provide him with a little over 1700 calories a day, which I think will be just will be adequate amount of calories and also adequate amount of fluids. The patient did well. His IV fluids were stopped and Physical Therapy worked with him and he did very well. By 2019, he was doing well and ready go home. The nurses had worked with him about the bolus feeding, which he was comfortable with and had been doing also with care of the G-tube. Arrangements had been made for humidification of his oxygen at home. Also, arrangements had been made for hospital bed, so that the head of the bed can be kept at least elevated 30 degrees for prevention of aspiration. The patient was discharged. DISPOSITION: DIET: Fibersource HN 12 ounces every 4 hours while awake at 9:00 a.m., 1:00 p.m., 5:00 p.m., and 9:00 p.m. Water flush 90 mL before and after each feeding. INSTRUCTIONS: Head of bed elevated at least 30 degrees. Care of the G-tube, to be kept clean and a gauze dressing daily. MEDICATIONS: 1. Acetaminophen 650 mg per tube every 4 hours as needed. 2. Gabapentin 250 mg per 5 mL per G-tube at bedtime. 3. Mucinex liquid 20 mL per G-tube at bedtime. 4. Metoclopramide 5 mg for 5 mL q.i.d. p.r.n. nausea. 5. Nystatin 5000 units to swish and spit 4 times a day. 6. Pataday 0.2% one drop in the eyes daily. FOLLOWUP: Home Health will continue to see the patient and will review his care of his G-tube, his mouth care. Visit with the dietitian at [facility] as needed. We will recheck in my office in 2 weeks. Follow up at [facility] according to their schedule. CODE STATUS: DNR. Job ID: [id number] MTDD
[2019-07-25] MEDS ORDERED: GABAPENTIN 250 MG/5 ML PER TUBE SCH (21:00)
--- NOTE | 2019-07-28 04:44 | PQF ---
[employer] Crystal Reports Winform ViewerBODAYANNA ADDISON MASOOD PEREZ MD [id number] CLINICAL DOCUMENTATION CLARIFICATION FORM: POST DISCHARGE Addendum to original discharge summary date: ____ Late entry note date: __ Date: 07/28/2019 ATTN: MASOOD PEREZ MD Please exercise your independent, professional judgment in responding to the clarification form. Clinical indicators are provided on the bottom of this form for your review Please check appropriate box(s): [ ] Protein Calorie Malnutrition: [ ] Mild [ ] Moderate [ ] Severe [ ] Other Malnutrition (please specify) __ [ ] Underweight without malnutrition [ ] Cachexia [ ] Other diagnosis [ ] Unable to determine In addition, please specify: Present on Admission (POA): [ ] Yes [ ] No [ ] Unable to determine CLINICAL INDICATORS - SIGNS / SYMPTOMS / LABS BMI of 19.8____ He has been unable to take any oral feeding since then and his nutrition and his hydration brenda been through feeding tupe - Documented in H&P on 07/23 by MASOOD PEREZ MD he seems so much weaker was not able to get up and seemed weaked and lightheaded - Documented in H&P on 07/23 by MASOOD PEREZ MD Dehydration ,vomiting and episode of diarrhea- Documented in H&P on 07/23 by MASOOD PEREZ MD suspected related to feeding tupe difficulties - Documented in H&P on 07/23 by MASOOD PEREZ MD Albumin level 3.0 on 07/23 - Documented in Laboratory RISK FACTORS Hx of RT mandible cancer and status post partial resection of mandible - Documented in H&P on 07/23 by MASOOD PEREZ MD He had PEG tube in placed severe dysphagia - Documented in H&P on 07/23 by MASOOD PEREZ MD TREATMENT: Started IV fluids with normal saline - Documented in H&P on 07/23 by MASOOD PEREZ MD He placed feeding schedule of FiberSource 1.2c/ml at 8 ounce by bolus every 4 hrs with water 60 ml before and after feeding - Documented in H&P on 07/23 by MASOOD PEREZ MD we will provide 1728 calories per 24hrs [employer] Crystal Reports Winform Viewer Moderate Malnutrition (in acute illness) Energy Intake: <75% of estimated energy requirement for > 7 days Weight Loss: 1-2%/1 week; 5%/ 1 month; 7.5%/3 months Other: mild body fat loss; mild muscle mass loss; mild fluid accumulation; Severe Malnutrition (in acute illness) Energy Intake: < 50% of estimated energy requirement for > 5 days Weight Loss: >1-2%/1 week; >5%/1 month; >7.5%/3 months Other: moderate body fat loss; moderate muscle mass loss; moderate- severe fluid accumulation; measurably reduced hair colorist strength Moderate Malnutrition (in chronic illness) Energy Intake: <75% of estimated energy requirement for >1 month Weight Loss: 5%/1 month; 7.5%/3 months; 10%/6 months; 20%/1 year Other: mild body fat loss; mild muscle mass loss; mild fluid accumulation Severe Malnutrition (in chronic illness) Energy Intake: <75% of estimated energy requirement for >1 month Weight Loss: >5%/1 month; >7.5%/3 months; >10%/6 months; >20%/1 year Other: severe body fat loss; severe muscle mass loss; severe fluid accumulation ; measurably reduced hair colorist strength (This form is maintained as a part of the permanent medical record) 2014 [employer] All Rights Reserved [email or web address] [not provided] MTDD
== END 2019-07-25 12:30 | disposition home or self-care (01) | DRG 641 ==
LOC: MADERS 11:46 → MADMS 15:47
PROVIDERS: ADMIT Family Medicine; ATTEND Family Medicine
DX: E86.0 Dehydration (principal); I48.0 Paroxysmal atrial fibrillation; K21.9 Gastro-esophageal reflux disease without esophagitis; E78.5 Hyperlipidemia, unspecified; C76.0 Malignant neoplasm of head, face and neck; R13.10 Dysphagia, unspecified; R09.02 Hypoxemia; J84.10 Pulmonary fibrosis, unspecified; Z98.42 Cataract extraction status, left eye; Z98.41 Cataract extraction status, right eye; Z79.899 Other long term (current) drug therapy; Z99.81 Dependence on supplemental oxygen
CPT/HCPCS: 36415; 71045; 74177; 80048; 80053; 81003; 81015; 82550; 83605; 83690; 84484; 85025; 87040; 87086; 93005; 96360; 96361; B4087; Q9967

== ENCOUNTER 2019-08-06 10:55 | Inpatient (IN) | payer MEDICARE ==
[~2019-08-06 10:55] MED LIST changes: -Iopamidol 370 76% 100 ML VIAL ONE; +Sodium Chloride 0.9% 100 ML BAG ONE
[2019-08-06] MEDS ORDERED: Sodium Chloride 0.9% 1,000 ML ONE (11:27)
[2019-08-06] MEDS ORDERED: Ondansetron PF 4 MG/2 ML Vial ONE (11:27)
[2019-08-06] MEDS ORDERED: cefTRIAXone\\ROCEPHIN 1 GM VIAL ONE (11:27)
--- NOTE | 2019-08-06 11:46 | RAD ---
ONE VIEW CHEST TWO VIEWS ABDOMEN: HISTORY: Emesis. COMPARISON: One view chest 07/23/2019. FINDINGS: ONE VIEW CHEST: Limited evaluate the cardiac silhouette due to stable diffuse interstitial and to a lesser extent manuelito eolar opacities. Interval development of small left-sided pleural effusion. Stable aorta. . No pneumothorax or acute osseous abnormalities. TWO VIEWS ABDOMEN: Nonspecific bowel gas pattern. No evidence of small bowel distention or dilatation. Scattered fecal m aterial in a nondistended, nondilated colon. No pneumoperitoneum. Degenerative changes of the lumbar spine with multilevel osteophyte formation. Mild rightward curvature at the L2-L3 level. IMPRESSION: 1. Chronic lung parenchymal changes. 2. Possible small new left-sided pleural effusion. 3. Nonspecific bowel gas pattern. Transcribed Date/Time: 08/06/2019 11:54 AM
[2019-08-06 11:59] LABS: #Basophils 0.1 thou/uL (0.0-0.2); #Eosinphils 0.2 thou/uL (0.0-0.7); #Lymphocytes 1.5 thou/uL (1.20-3.40); #Monocytes 1.1 thou/uL (0.11-0.59); #Neutrophils 8.5 thou/uL (1.40-6.50); %Basophils 0.9 % (0.0-1.0); %Eosinophils 1.7 % (0.0-10.0); %Lymphocytes 13.4 % (21.0-51.0); %Monocytes 9.4 % (0.0-10.0); %Neutrophils 74.6 % (42.0-75.0); Hemoglobin 12.3 g/dL (14.0-18.0); Mean Corpuscular HGB CONC 30.7 g/dL (32.0-36.0); Mean Corpuscular Volume 94.5 fL (78.0-98.0); Mean Platelet Volume 6.9 fL (7.4-10.4); Platelet Count 359 thou/uL (130-400); RBC Distribution Width 13.7 % (11.5-14.5); Red Blood Cell (RBC) Count 4.24 mill/uL (4.70-6.10); White Blood Cell (WBC) Count 11.4 thou/uL (4.8-10.8)
[2019-08-06 12:24] LABS: Bilirubin Negative (Negative); Blood, Urine Negative (Negative); Clarity Clear (Clear); Glucose, Urine (Dipstick) Negative (Negative); Leukocyte Negative (Negative); Nitrite Negative (Negative); Protein, Urine (Dipstick) 30 mg/dL (Neg-Trace)
[2019-08-06 12:26] LABS: ALT (SGPT) 34 U/L (8-55); AST (SGOT) 25 U/L (5-34); Albumin 2.8 g/dL (3.4-4.8); Alkaline Phosphatase 100 U/L (40-110); Anion Gap 15 mmol/L (10-20); BUN (Urea Nitrogen) 20 mg/dL (8.4-25.7); Bilirubin, Total 0.2 mg/dL (0.2-1.2); CK (CPK) 29 U/L (30-200); Calc. Creatinine Clearance 0 mL/min (70-130); Calcium 8.3 mg/dL (7.8-10.44); Carbon Dioxide 25 mmol/L (23-31); Chloride 98 mmol/L (98-107); Estimated GFR-MDRD Greater than 90; Globulin 5.4 g/dL (2.4-3.5); Glucose 147 mg/dL (83-110); Lipase 35 U/L (8-78); Potassium 4.6 mmol/L (3.5-5.1); Protein, Total 8.2 g/dL (5.8-8.1); Sodium 133 mmol/L (136-145)
[2019-08-06 12:30] LABS: Bacteria/HPF Rare-Few HPF (None Seen); RBC/HPF 0-3 HPF (0-3); Squamous Epithelial 0-3 HPF (0-3); WBC/HPF 0-3 HPF (0-3)
[2019-08-06] MEDS ORDERED: Metoclopramide HCl 10 MG TAB PER TUBE PRN (17:21)
[2019-08-06] MEDS: Sodium Chloride 0.9% 1,000 ML IV SCH ×2 (18:04→18:20)
[2019-08-06] MEDS: Acetaminophen 325 MG TAB PER TUBE PRN (18:19)
[2019-08-06] MEDS: Nystatin 500,000 UNITS/5 ML UDCUP SSP SCH (21:05)
[2019-08-06] MEDS ORDERED: Sodium Chloride 0.9% 1,000 ML IV SCH (23:59)
[2019-08-07] MEDS: Acetaminophen 325 MG TAB PER TUBE PRN (01:37)
[2019-08-07 05:39] LABS: #Basophils 0.1 thou/uL (0.0-0.2); #Eosinphils 0.2 thou/uL (0.0-0.7); #Lymphocytes 1.4 thou/uL (1.20-3.40); #Monocytes 0.8 thou/uL (0.11-0.59); #Neutrophils 4.9 thou/uL (1.40-6.50); %Basophils 0.8 % (0.0-1.0); %Eosinophils 3.3 % (0.0-10.0); %Lymphocytes 19.1 % (21.0-51.0); %Monocytes 11.2 % (0.0-10.0); %Neutrophils 65.5 % (42.0-75.0); Hemoglobin 10.5 g/dL (14.0-18.0); Mean Corpuscular HGB CONC 30.4 g/dL (32.0-36.0); Mean Corpuscular Hemoglobin 28.2 pg (27.0-31.0); Mean Corpuscular Volume 92.5 fL (78.0-98.0); Mean Platelet Volume 6.7 fL (7.4-10.4); Platelet Count 349 thou/uL (130-400); RBC Distribution Width 13.8 % (11.5-14.5); Red Blood Cell (RBC) Count 3.72 mill/uL (4.70-6.10); White Blood Cell (WBC) Count 7.5 thou/uL (4.8-10.8)
[2019-08-07 05:57] LABS: Anion Gap 11 mmol/L (10-20); BUN (Urea Nitrogen) 17 mg/dL (8.4-25.7); Calc. Creatinine Clearance 65 mL/min (70-130); Calcium 8.3 mg/dL (7.8-10.44); Carbon Dioxide 29 mmol/L (23-31); Chloride 100 mmol/L (98-107); Estimated GFR-MDRD Greater than 90; Glucose 95 mg/dL (83-110); Potassium 4.8 mmol/L (3.5-5.1); Sodium 135 mmol/L (136-145)
--- NOTE | 2019-08-07 07:30 | HP ---
Admitted to [facility] on 08/06/2019. CHIEF COMPLAINT: Vomiting and weakness. 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 He also had a PEG tube placed due to severe dysphagia and he has required the PEG tube for his nutrition and fluids. The patient lives at home and has been ambulatory and able to assist with all his ADLs. He was hospitalized at [facility] from 07/23 to 07/25/2019 for nausea, vomiting, inadequate fluid intake and weakness. During that hospitalization, he was given IV fluids for hydration and then he was placed on a different feeding schedule that has worked very well for the family. This has been working out well. The patient also has a history of pulmonary fibrosis complicated by chronic hypoxemia, requiring a continuous supplemental O2. The patient was brought to the emergency room on the day of admission because of increasing weakness and episode of vomiting and the patient said that he had gotten up and just stumbled and fell without injury. The patient had not had any chills or fever and he had not had any diarrhea. His said he was having some frequent urination and some urgency. In the emergency room, his H and H were 12.3 and 40.1, white cell count was 11,400 with 75% segs, 13% lymphocytes, and platelet count of 359,000. His sodium was 133, potassium 4.6, his BUN 20, creatinine 0.75, glucose 147, lactic acid 1.4, albumin 2.8, lipase 35, creatine kinase 29. Urinalysis shows specific gravity of 1.020, protein 30, rbc 0 to 3, wbc 0 to 3, and urine nitrite negative. The patient was admitted to the hospital with a diagnosis of vomiting , dehydration, and weakness. The patient was initially started on IV fluids, placed on his supplemental O2 and admitted. The patient's had visited with the ER doctor and said that they wanted to explore possible penitentiary placement. She was just worn out from these months of intensive care giving and did not know if she could keep this much longer. The patient was seen soon after his admission. His daughter, Bethanie was with the patient. The patient was able to give me a history of just having an episode of vomiting this morning and then said that he had had a fall while he was trying to walk down the ramp and just legs seemed to give out on him. His was with him and said he was not injured from how he sat down and there was no loss of consciousness. He says right now he is feeling better. His daughter, Bethanie said that since he has been home, the new feeding schedule outlined below is going very well and they like this very well, also that he is no longer complaining of soreness in the mouth. They have been really trying to be mindful of care of his mouth and hydration and using Biotene as an artificial moisturizer for the mouth giving him mouth care, he now has hydration. He now has water bottle attached to his O2. PAST HISTORY: Hospitalized at [facility] from 07/23 to 2019 for dehydration secondary to vomiting and inadequate fluid intake and some dysfunction with his tube feeding. 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 At that time, he also had a PEG tube placed, he has severe dysphagia and he is dependent upon this for his fluid intake and nutritional intake. 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 PRESENT MEDICINES: 1. Acetaminophen 650 mg per G-tube every 4 hours as needed. 2. Gabapentin 250 mg/5 mL per G-tube at bedtime. 3. Mucinex liquid 20 mL per G-tube at bedtime. 4. Metoclopramide 5 mg/5 mL, 5 mL q.i.d. p.r.n. nausea. 5. O2 at 2 L continuous. 6. Pataday 0.2% one drop in the eyes daily. ALLERGIES: NO KNOWN ALLERGIES. FEEDINGS PER G-TUBE: FiberSource HN 1.2 calories/mL 12 ounces every 4 hours while awake, that is at 9 a.m., 1 p.m., 5 p.m., and 9 p.m. Water flush with 90 mL before and after each feeding, aspiration precaution, he had a bed kept at least 30 degrees. REVIEW OF SYSTEMS: GENERAL: The patient does not think that he has lost any weight. He has had no fever. HEAD AND NECK: The patient said his mouth is not hurting like it had been. Family is trying to be a lot more aggressive on keeping the mouth clean and hydrated. PULMONARY: No shortness of breath. No cough. CARDIOVASCULAR: No chest pain. GI: Episode of vomiting this morning. No diarrhea. No abdominal pain. : The patient is having some urinary frequency and urgency. ADLS: The patient able to walk. He usually requires a little assistance with dressing and standby help with showering. Requires assistance with all his instrumental ADLs. HABITS: Alcohol, none. Tobacco, none. SOCIAL HISTORY: The patient is . Lives at home with his , who serves as his primary caregiver. Home Health is also seeing the patient to assist with his care. PHYSICAL EXAMINATION: GENERAL: Shows a very pleasant 84-year-old white male, who is lying in bed. He is able to talk and can be easily understood. VITAL SIGNS: Show a temperature of 98.2, pulse 83, respirations 18, O2 saturation 97% on 3 L by nasal cannula, blood pressure 100/55. His weight is 134. HEENT: Head, normocephalic. Eyes, pupils were equal, round, and reactive. Ears, TMs were clear. Nose normal. Mouth and throat, mucous membranes and mouth are little dry. There is a little yellow discoloration and crusting over the dorsum of the tongue. Overall though the mouth looks better than what it had 10 days ago when he was last seen. The patient has had a partial resection of the mandible on the right. NECK: There is no adenopathy in the neck. Thyroid not enlarged. Carotids are equal and strong. There are no bruits. LUNGS: Diffuse rales throughout the anterior and posterior chest. HEART: Regular rate. ABDOMEN: There is a G-tube present in the left upper quadrant. Stoma is clean. ABDOMEN: Soft and nontender. EXTREMITIES: No edema. NEUROLOGIC: The patient is alert and oriented. Knows he is in the hospital. Recognizes me. He has no focal weakness. IMPRESSION: 1. Vomiting. 2. Dehydration. 3. Increased weakness. 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 a. Status post partial resection of the mandible followed by radiation therapy and chemotherapy January of 2019. 5. Severe dysphagia. a. Secondary to his head and neck surgery and radiation therapy in January 2019. b. Status post PEG tube placement in January 2019. c. Depended upon PEG tube for nutrition and hydration. 6. Pulmonary fibrosis. a. Complicated by hypoxemia requiring continuous supplemental O2. PLAN: The patient has been admitted to the hospital for cautious IV hydration. We will restart his G-tube feeding per schedule outlined above. We will visit with his about post hospital care. Apparently, she is wanting to explore penitentiary care. CODE STATUS: DNR. Job ID: [id number] MTDD
[2019-08-07] MEDS: Tamsulosin HCl 0.4 MG CAP PO SCH (09:12)
[2019-08-07] MEDS: Nystatin 500,000 UNITS/5 ML UDCUP SSP SCH ×4 (09:12→21:52)
--- NOTE | 2019-08-07 09:44 | PRG ---
DATE OF SERVICE: 08/07/2019 SUBJECTIVE: I had an opportunity late yesterday to visit with Mrs. Engel who said that the patient did not have any falls yesterday. She said that he had the episode of cough and then the episode of vomiting and extreme weakness. She is exploring mcc placement that may just be temporary because she has just worn out. This morning, the patient's son was with the patient. He said that he is doing okay this morning. His had stayed with him and said that in the evening he was a little bit confused, but eventually slept. He has had no more vomiting. OBJECTIVE: GENERAL: The patient is alert, talkative, appears in no distress. VITAL SIGNS: His temp is 96.3, pulse 75, respirations 18, O2 saturation 96% on room air. Blood pressure 137/63. His weight is 136. LUNGS: Clear. HEART: Regular rate. ABDOMEN: Soft, nontender. LABORATORY DATA: Shows a hemoglobin of 10.5, and 34.4, white cell count 7500 with 66% segs, 19% lymphocytes, and a platelet count of 349,000. Sodium 135, potassium 4.8, BUN 17, creatinine 0.73, glucose 95. ASSESSMENT: 1. Vomiting. a. Resolved. 2. Dehydration. a. Resolved as of 08/07/19. 3. Increased weakness. 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 a. Status post partial resection of the mandible followed by radiation therapy and chemotherapy January of 2019. 5. Severe dysphagia. a. Secondary to his head and neck surgery and radiation therapy in January 2019. b. Status post PEG tube placement in January 2019. c. Depended upon PEG tube for nutrition and hydration. d. Gastrostomy-tube feeding going well as of 08/07 6. Pulmonary fibrosis. a. Complicated by hypoxemia requiring continuous supplemental O2. 7. Intermittent confusion. PLAN: We will discontinue the IV. We will continue to have Physical Therapy work with the patient. The patient's is exploring possible mcc placement. We will try and modify the patient's water intake in the evenings and see if this will help with the urinary frequency. He is not a good candidate for any medications for the urinary frequency due to their anticholinergic effect. We will try reducing the water before his 5 p.m. and 9 p.m. feeding to 60 mL flush before and after feeding and to compensate for that decrease from 90, we will give 120 before and after the 9 a.m. and 1 p.m. feeding. Job ID: [id number] [facility] CENTERNoreen
[2019-08-07 11:32] VITALS: BMI 19.5
[2019-08-08 07:09] VITALS: BP 123/58; TEMP 97
[2019-08-08] MEDS: Tamsulosin HCl 0.4 MG CAP PO SCH (09:05)
[2019-08-08] MEDS: Nystatin 500,000 UNITS/5 ML UDCUP SSP SCH (09:05)
--- NOTE | 2019-08-11 05:25 | PQF ---
S[employer] Account Advisor Crystal Reports Winform ViewerDAYANNA GUILLEN MASOOD PEREZ MD [id number] CLINICAL DOCUMENTATION CLARIFICATION FORM: POST DISCHARGE Addendum to original discharge summary date: ____ Late entry note date: __ Date: 08/11/2019 ATTN: MASOOD PEREZ MD Please exercise your independent, professional judgment in responding to the clarification form. Clinical indicators are provided on the bottom of this form for your review Please check appropriate box(s): [ ] Protein Calorie Malnutrition: [ ] Mild [ ] Moderate [ ] Severe [ ] Other Malnutrition (please specify) __ [ ] Underweight without malnutrition [ ] Cachexia [ ] Other diagnosis [ ] Unable to determine In addition, please specify: Present on Admission (POA): [ ] Yes [ ] No [ ] Unable to determine CLINICAL INDICATORS - SIGNS / SYMPTOMS / LABS BMI of __19.1__ Vomiting, Dehydration increased weakness, inadequate fluid intake - Documented in H&P on 08/07 by MASOOD PEREZ MD Severe dysphagia - Documented in H&P on 08/07 by MASOOD PEREZ MD Depended on PEG tube for nutrition and hydration - Documented in H&P on 08/07 by MASOOD PEREZ MD Albumin level 2.8 on 08/06 - Documented in Laboratory RISK FACTORS Squamous cell carcinoma of the RT mandible - Documented in H&P on 08/07 by MASOOD PEREZ MD Status post partial resection of mandible - Documented in H&P on 08/07 by MASOOD PEREZ MD Hx of dysfunction with his feeding tube - Documented in H&P on 08/07 by MASOOD PEREZ MD TREATMENT: Given IV fluid for hydration and he was placed on a different feeding schedule - Documented in H&P on 08/07 by MASOOD PEREZ MD Moderate Malnutrition (in acute illness) Energy Intake: <75% of estimated energy requirement for > 7 days Weight Loss: 1-2%/1 week; 5%/ 1 month; 7.5%/3 months Other: mild body fat loss; mild muscle mass loss; mild fluid accumulation; [employer] Account Advisor Crystal Reports Winform ViewerSevere Malnutrition (in acute illness) Energy Intake: < 50% of estimated energy requirement for > 5 days Weight Loss: >1-2%/1 week; >5%/1 month; >7.5%/3 months Other: moderate body fat loss; moderate muscle mass loss; moderate- severe fluid accumulation; measurably reduced security management specialist strength Moderate Malnutrition (in chronic illness) Energy Intake: <75% of estimated energy requirement for >1 month Weight Loss: 5%/1 month; 7.5%/3 months; 10%/6 months; 20%/1 year Other: mild body fat loss; mild muscle mass loss; mild fluid accumulation Severe Malnutrition (in chronic illness) Energy Intake: <75% of estimated energy requirement for >1 month Weight Loss: >5%/1 month; >7.5%/3 months; >10%/6 months; >20%/1 year Other: severe body fat loss; severe muscle mass loss; severe fluid accumulation ; measurably reduced security management specialist strength (This form is maintained as a part of the permanent medical record) 2014 [employer] All Rights Reserved [email or web address] [not provided] [email or web address]
--- NOTE | 2019-08-12 10:36 | DIS ---
DATE OF ADMISSION: 08/06/2019 DATE OF DISCHARGE: 08/08/2019 FINAL DIAGNOSES: 1. Vomiting, resolved. 2. Dehydration, resolved. 3. Increased weakness. a. Resolved and back to his baseline strength. 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 a. Status post partial resection of the mandible followed by radiation therapy and chemotherapy in January 2019. 5. Severe dysphagia. a. Secondary to head and neck surgery and radiation therapy in January 2019. b. Status post PEG tube placement, January of 2019. c. Dependent upon PEG tube for nutrition and hydration. The G-tube feeding going well as of 08/08/2019. 6. Pulmonary fibrosis. a. Complicated by hypoxemia, requiring continuous supplemental O2. 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 He has been left with a severe dysphagia requiring a PEG tube that he is dependent upon for his nutrition and hydration. He also has a history of pulmonary fibrosis complicated by hypoxemia, requiring supplemental O2. Periodically patient will fall behind on his fluids, develop vomiting and then becomes dehydrated and much weaker. This happened again and he presented to the emergency room on 08/06. He was started on IV fluids after his initial evaluation. Abdominal series showed no evidence of any obstruction. His initial exam showed that his lungs were clear. His mouth was dry, but looked much better than his recent hospitalization earlier this month. His abdomen was soft and nontender. The patient was continued on IV hydration and his G-tube feedings were restarted. By 08/07/2019, he was doing much better. His blood pressure was normal. He was not having the weak feeling or the dizzy feeling and his strength was getting back to normal. Physical Therapy worked with him. His IV fluids were started. His G-tube feedings were resumed. He was having a lot of problems with nocturia, so the G-tube feeding was changed a little bit to try to get more of the water in the morning and less in the evening. See the schedule under the disposition. His was exploring possible alf placement, but after review they have decided that they are going to continue to manage at home. By 08/08/2019, patient was alert, talkative, had been up walking with physical therapy. His G-tube feedings were going very well. His condition improved. His dehydration resolved and the vomiting resolved and his weakness had improved such that he was back to his baseline level. His felt like they could handle things at this point fine at home. DISPOSITION: G-tube feeding with Fibersource HN 1.2 kilocalories/mL as follows, to 12 ounces per G-tube at 9:00 am, 1:00 p.m., 5:00 p.m., and 9:00 p.m. Water flush 120 mL before and after the 9:00 a.m. and 1:00 p.m. feeding, 60 mL water flush before and after 5:00 p.m. and 9:00 p.m. feeding. Aspiration precautions including head of bed up at least 30 degrees. General mouth care, Biotene mouth spray. MEDICATIONS: 1. O2 with water bottle hydration at 2 L continuous. 2. Acetaminophen 650 mg per G-tube every 4 hours as needed. 3. Gabapentin 250 mg/5 mL, 5 mL per G-tube at bedtime. 4. Metoclopramide 5 mg/5 mL, 5 mL q.i.d. p.r.n. nausea. 5. Tamsulosin 0.4 mg at bedtime. FOLLOWUP: The patient will be seen in followup in 2 weeks. If the patient gets behind on fluids or dehydrated when he presents to the emergency room, it is recommended that he just receive a L of fluid and then if symptoms better, allow to go home. This is what the would like to try to help avoid some of these admissions. CODE STATUS: DNR. Job ID: [id number]
== END 2019-08-08 11:05 | disposition home or self-care (01) | DRG 641 ==
LOC: MADERS 10:55 → MADMS 13:00 → UNDOADMIN 13:00 → MADMS 13:55
PROVIDERS: ADMIT Family Medicine; ATTEND Family Medicine
DX: E86.0 Dehydration (principal); C41.1 Malignant neoplasm of mandible; R53.1 Weakness; Z99.81 Dependence on supplemental oxygen; I48.0 Paroxysmal atrial fibrillation; Z98.42 Cataract extraction status, left eye; Z98.41 Cataract extraction status, right eye; J84.10 Pulmonary fibrosis, unspecified; R13.10 Dysphagia, unspecified; Z66 Do not resuscitate; R11.10 Vomiting, unspecified
CPT/HCPCS: 36415; 74022; 80048; 80053; 81003; 81015; 82550; 83605; 83690; 84484; 85025; 87040; 87086; 93005; 94760; 96361; 96365; 96367; 96375; J0696; J1956; J2405; J3490; J7050

== ENCOUNTER 2019-08-21 12:10 | Inpatient (IN) | payer MEDICARE, OTHER ==
[2019-08-21] MEDS ORDERED: Albuterol Sulfate 2.5 mg/3 ml Neb NEB SCH (17:00)
[2019-08-21] MEDS: Latanoprost 0.005% Ophth Soln 2.5 ml Bottle EA EYE SCH (21:10)
[2019-08-21] MEDS: Amoxicillin/Potassium Clav 875 MG TAB PER TUBE SCH (21:10)
[2019-08-21] MEDS: Oxybutynin 5 MG TAB PER TUBE SCH (21:10)
[2019-08-21] MEDS: Metoprolol Tartrate 25 MG TAB PER TUBE SCH (21:11)
[2019-08-22 05:35] LABS: #Basophils 0.1 thou/uL (0.0-0.2); #Eosinphils 0.6 thou/uL (0.0-0.7); #Lymphocytes 1.8 thou/uL (1.20-3.40); #Monocytes 1.2 thou/uL (0.11-0.59); #Neutrophils 6.1 thou/uL (1.40-6.50); %Basophils 0.6 % (0.0-1.0); %Eosinophils 6.6 % (0.0-10.0); %Monocytes 12.2 % (0.0-10.0); %Neutrophils 62.6 % (42.0-75.0); Hemoglobin 12.6 g/dL (14.0-18.0); Mean Corpuscular HGB CONC 30.2 g/dL (32.0-36.0); Mean Corpuscular Hemoglobin 29.2 pg (27.0-31.0); Mean Corpuscular Volume 96.6 fL (78.0-98.0); Mean Platelet Volume 7.6 fL (7.4-10.4); Platelet Count 264 thou/uL (130-400); RBC Distribution Width 15.6 % (11.5-14.5); Red Blood Cell (RBC) Count 4.31 mill/uL (4.70-6.10); White Blood Cell (WBC) Count 9.8 thou/uL (4.8-10.8)
[2019-08-22 05:56] LABS: ALT (SGPT) 26 U/L (8-55); AST (SGOT) 17 U/L (5-34); Albumin 2.8 g/dL (3.4-4.8); Alkaline Phosphatase 77 U/L (40-110); Anion Gap 11 mmol/L (10-20); BUN (Urea Nitrogen) 20 mg/dL (8.4-25.7); Bilirubin, Total 0.4 mg/dL (0.2-1.2); Calc. Creatinine Clearance 74 mL/min (70-130); Calcium 8.2 mg/dL (7.8-10.44); Carbon Dioxide 31 mmol/L (23-31); Chloride 96 mmol/L (98-107); Estimated GFR-MDRD Greater than 90; Globulin 3.9 g/dL (2.4-3.5); Glucose 108 mg/dL (83-110); Potassium 4.2 mmol/L (3.5-5.1); Protein, Total 6.7 g/dL (5.8-8.1); Sodium 134 mmol/L (136-145)
--- NOTE | 2019-08-22 07:47 | HP ---
CHIEF COMPLAINT: Weak following hospitalization for pneumonia. 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 He has a G tube and requires G-tube feeding and hydration. He does not take any nutrition or fluids by mouth. The patient also has a history of pulmonary fibrosis, complicated by chronic hypoxemia, requiring supplemental O2. The patient was hospitalized at [facility] from 08/14 to 08/21. He was initially seen in the emergency room for increasing breathing difficulty and cough and inability to keep his O2 saturation up on his usual 3 L. the patient was found to have acute on chronic hypoxic respiratory failure, likely secondary to an exacerbation of his pulmonary fibrosis with a superimposed pneumonia. The patient was treated with IV steroids, IV cefepime and vancomycin, neb treatments, and supplemental O2 with marked improvement. He was left very weak and essentially bed confined. His pulmonary doctor, Dr. Partida has recommended that he be gradually tapered on the steroids over the next several weeks and also complete 10-day course of the antibiotics. The patient was moved to [facility] for continued treatment and for physical therapy, occupational therapy evaluation to see if they can help with his general strength. PAST MEDICAL HISTORY: Hospitalized at [facility] from to 08/21 for pulmonary fibrosis with acute exacerbation secondary to a superimposed pneumonia with acute on chronic hypoxic respiratory failure. 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 He has been left with severe dysphagia, has required a G-tube for his nutrition and fluids. He has history of pulmonary fibrosis, complicated by chronic hypoxemia, requiring supplemental O2. He has peripheral vascular disease. He has had bilateral endarterectomies, paroxysmal atrial fibrillation, and overactive bladder. PRESENT MEDICINES: 1. Albuterol by nebulizer ever hour as needed. 2. Augmentin 875 b.i.d. for 7 days. 3. Metoprolol tartrate 25 mg b.i.d. 4. Oxybutynin 5 mg two times a day. 5. MiraLAX 17 g 8 ounces water daily. 6. Prednisone 40 mg daily for 7 days, then 20 mg daily for 7 days, then 10 mg daily for 7 days, and then 5 mg daily for 7 days. 7. Latanoprost ophthalmic solution 0.005% that he uses daily. 8. O2 at 3 L by nasal cannula. ALLERGIES: CEPHALEXIN. REVIEW OF SYSTEMS: GENERAL: The patient said he is just weak. HEAD AND NECK: The patient said he is not able to take any oral feeding or fluids. PULMONARY: The patient said his breathing is doing better. He requires the oxygen continuous. CARDIOVASCULAR: No chest pain. GI: The patient presently is receiving G-tube feeding with FiberSource HN 1.2 jason/mL at 8 a.m. and noon with 120 mL water flush before and after, 18 ounces of FiberSource at 4 p.m. and 8 p.m. with 60 mL of water flush before and after, aspiration precautions. HABITS: Alcohol, none. Tobacco, none. SOCIAL HISTORY: The patient is , has been attended by his , but condition has markedly deteriorated. He is much weaker and requiring assistance with all of his ADLs. CODE STATUS: DNR. PHYSICAL EXAMINATION: GENERAL: Shows a very weak 84-year-old white male, who is lying in bed. He is awake, tries to talk some, and a little hard to understand. He appears in no acute distress. VITAL SIGNS: His temperature is 96.6, pulse 68, respirations 22, O2 saturation 97% on 3 L, blood pressure 99/57. Weight 145. HEENT: Head, normocephalic and atraumatic. Ears, TMs are clear. Eyes, pupils are equal, round, and reactive. Sclerae nonicteric. Nose, normal. Mouth and throat, mucous membranes are dry, there is yellow crusting on the tongue. NECK: No adenopathy. Carotids are equal and strong. No bruits. LUNGS: The patient has diffuse fine rales over the anterior and posterior chest. HEART: Regular rate. ABDOMEN: Scaphoid with a G-tube present in the left upper quadrant, skin around the stoma is clean, no redness nor drainage. EXTREMITIES: No edema. NEUROLOGIC: The patient is alert, talkative. He has severe generalized weakness, but is nonfocal. IMPRESSION: 1. Severe generalized weakness and deconditioning. a. Following hospitalization for pneumonia and pulmonary fibrosis exacerbation. 2. Hospitalized at [facility] from 08/14/2019 to 08/21/2019 for acute on chronic hypoxic respiratory failure secondary to an exacerbation of his pulmonary fibrosis and superimposed pneumonia. 3. Pulmonary fibrosis. a. Complicated by chronic hypoxic respiratory failure, requiring supplemental O2. b. Status post hospitalization at [facility] from to 08/21/2019 for acute on chronic hypoxic respiratory failure secondary to pulmonary fibrosis exacerbation with superimposed pneumonia. c. Exacerbation of pneumonia, improving as of 08/21/2019. 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 a. Status post partial resection of the mandible followed by radiation therapy and chemotherapy in January of 2019. 5. Severe dysphagia. a. Secondary to head and neck surgery and radiation therapy in January of 2019. b. Status post PEG tube placement in January 2019. c. Depended upon PEG tube feeding for nutrition and hydration. 6. Code status. DNR. PLAN: Over the last few weeks, the patient has had a marked decline in his general health with deterioration of his strength and functional capability. He is most recently hospitalized with a hypoxic respiratory failure, acute on chronic, secondary to exacerbation of his pulmonary fibrosis with superimposed pneumonia. This seems to be better. We will continue his present G-tube feeding. We will do the slow tapering of the prednisone over the next 28 days. We will continue the Augmentin 875 mg b.i.d. for 7 days. We will ask PT and OT to work with him and see if his general functional capabilities can be improved. Code status DNR. Job ID: [id number] MTDD
[2019-08-22] MEDS: Acetaminophen 325 MG TAB PER TUBE PRN ×2 (08:42→20:04)
[2019-08-22] MEDS: predniSONE 20 MG TAB PER TUBE SCH (08:42)
[2019-08-22] MEDS: Amoxicillin/Potassium Clav 875 MG TAB PER TUBE SCH ×2 (08:42→20:04)
[2019-08-22] MEDS: Oxybutynin 5 MG TAB PER TUBE SCH ×2 (08:43→20:04)
[2019-08-22] MEDS: Metoprolol Tartrate 25 MG TAB PER TUBE SCH ×2 (08:43→20:04)
[2019-08-22] MEDS: Polyethylene Glycol 3350 17 GM Packet PER TUBE SCH (08:44)
[2019-08-22] MEDS ORDERED: FLU VACC TS2019-20(65YR UP)/PF 180 MCG/0.5 ML SYRINGE IM ONE (15:45)
[2019-08-22] MEDS: Albuterol Sulfate 2.5 mg/3 ml Neb NEB PRN (19:58)
[2019-08-22] MEDS: Latanoprost 0.005% Ophth Soln 2.5 ml Bottle EA EYE SCH (20:16)
[2019-08-23] MEDS: Oxybutynin 5 MG TAB PER TUBE SCH ×2 (08:03→20:56)
[2019-08-23] MEDS: Amoxicillin/Potassium Clav 875 MG TAB PER TUBE SCH ×2 (08:03→20:56)
[2019-08-23] MEDS: Metoprolol Tartrate 25 MG TAB PER TUBE SCH ×2 (08:03→20:56)
[2019-08-23] MEDS: predniSONE 20 MG TAB PER TUBE SCH (08:03)
[2019-08-23] MEDS: Enoxaparin Sodium 40 MG/0.4 ML SYRINGE SC SCH (08:04)
[2019-08-23] MEDS: Polyethylene Glycol 3350 17 GM Packet PER TUBE SCH (08:04)
[2019-08-23] MEDS: Ondansetron ODT 4 MG TAB PER TUBE PRN (18:24)
[2019-08-23] MEDS: Latanoprost 0.005% Ophth Soln 2.5 ml Bottle EA EYE SCH (20:55)
[2019-08-23] MEDS: Acetaminophen 325 MG TAB PER TUBE PRN (20:56)
[2019-08-24] MEDS: Acetaminophen 325 MG TAB PER TUBE PRN ×2 (07:50→20:14)
[2019-08-24] MEDS: Amoxicillin/Potassium Clav 875 MG TAB PER TUBE SCH ×2 (07:50→20:14)
[2019-08-24] MEDS: predniSONE 20 MG TAB PER TUBE SCH (07:50)
[2019-08-24] MEDS: Metoprolol Tartrate 25 MG TAB PER TUBE SCH ×2 (07:50→20:14)
[2019-08-24] MEDS: Oxybutynin 5 MG TAB PER TUBE SCH ×2 (07:50→20:14)
[2019-08-24] MEDS: Enoxaparin Sodium 40 MG/0.4 ML SYRINGE SC SCH (07:51)
[2019-08-24] MEDS: Polyethylene Glycol 3350 17 GM Packet PER TUBE SCH (07:51)
[2019-08-24] MEDS: Ondansetron ODT 4 MG TAB PER TUBE PRN ×2 (09:50→15:56)
[2019-08-24] MEDS: Albuterol Sulfate 2.5 mg/3 ml Neb NEB PRN (12:10)
[2019-08-24] MEDS: Latanoprost 0.005% Ophth Soln 2.5 ml Bottle EA EYE SCH (20:15)
[2019-08-25] MEDS: Metoprolol Tartrate 25 MG TAB PER TUBE SCH ×2 (09:37→20:34)
[2019-08-25] MEDS: predniSONE 20 MG TAB PER TUBE SCH (09:37)
[2019-08-25] MEDS: Polyethylene Glycol 3350 17 GM Packet PER TUBE SCH (09:37)
[2019-08-25] MEDS: Amoxicillin/Potassium Clav 875 MG TAB PER TUBE SCH ×2 (09:37→20:33)
[2019-08-25] MEDS: Oxybutynin 5 MG TAB PER TUBE SCH ×2 (09:38→20:34)
[2019-08-25] MEDS: Enoxaparin Sodium 40 MG/0.4 ML SYRINGE SC SCH (09:38)
[2019-08-25] MEDS: Acetaminophen 325 MG TAB PER TUBE PRN ×2 (09:38→20:34)
[2019-08-25] MEDS: Albuterol Sulfate 2.5 mg/3 ml Neb NEB PRN (10:07)
--- NOTE | 2019-08-25 10:53 | PRG ---
DATE OF SERVICE: 08/25/2019 SUBJECTIVE: The patient has been very weak, not able to do anything from self, requiring maximum efforts, just moving in bed. OBJECTIVE: GENERAL: This morning, he is alert, talkative, but using his oxygen continuous at 3 L. VITAL SIGNS: Temp is 96.8, pulse is 68, respirations are 18, O2 sat is 93% on 3 L, and blood pressure 125/62. LUNGS: Had diffuse rales, which is from his pulmonary fibrosis. There are no wheezes or rhonchi. MOUTH: With some yellowish dried debris on the tongue. EXTREMITIES: No edema. ABDOMEN: G-tube site clean. LABORATORY DATA: Lab from 08/22 showed of albumin of 2.8. ASSESSMENT: 1. Severe generalized weakness and deconditioning. a. Following hospitalization for pneumonia and pulmonary fibrosis exacerbation. b. Little change, requiring assistance with all of his ADLs and maximum assistance with movement in bed. 2. Hospitalized at [facility] from 08/14 to 2019 for acute on chronic hypoxic respiratory failure secondary to an exacerbation of his pulmonary fibrosis and superimposed pneumonia. 3. Pulmonary fibrosis. a. Complicated by chronic hypoxic respiratory failure, requiring supplemental O2. b. Status post hospitalization at [facility] from to 08/21 for acute on chronic hypoxic respiratory failure secondary to pulmonary fibrosis exacerbation and superimposed pneumonia. c. Exacerbation of pulmonary fibrosis and pneumonia, improving as of 2019. 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 a. Status post partial resection of the mandible followed by radiation therapy and chemotherapy in January 2019. 5. Severe dysphagia. a. Secondary to the head and neck surgery and radiation therapy in January 2019. b. Status post PEG tube placement in January 2019. c. Dependent upon PEG tube feeding for nutrition and hydration. 6. Code status, DNR. PLAN: Complete the oral antibiotics and the slow tapering course of steroids. Continue the supplemental O2. PT and OT will continue working with him to see if functionally he can improve any. Continue the G-tube feedings. [facility] ID: [id number] [facility]
[2019-08-25] MEDS: Ondansetron ODT 4 MG TAB PER TUBE PRN (20:37)
[2019-08-25] MEDS: Latanoprost 0.005% Ophth Soln 2.5 ml Bottle EA EYE SCH (20:40)
--- NOTE | 2019-08-26 09:00 | PRG ---
DATE OF SERVICE: 08/26/2019 SUBJECTIVE: The patient said he is feeling okay today. Nurses said he is very weak, has not been able to get up even in a chair with the help with therapy. Therapy is done in bed. This morning, I had an opportunity to visit with Mrs. Engel and she said he is so much weaker than what he was prior to the hospitalization. OBJECTIVE: GENERAL: The patient is lying in bed, talks to me some, appears comfortable, but very weak. VITAL SIGNS: Show a temperature of 97.4, pulse 79, respirations 18, O2 saturation 96% on 3 L, and blood pressure 102/63. LUNGS: Fine rales that are diffuse. There are no wheezes or rhonchi. HEART: Regular rate. ABDOMEN: There is no distention nor tenderness. ASSESSMENT: 1. Severe generalized weakness and deconditioning. a. Following hospitalization for pneumonia and pulmonary fibrosis exacerbation. b. A little change, requiring total care. Still unable to get up out of bed even with assistance as of 08/26. 2. Hospitalized at [facility] 08/14 to 08/21 for acute on chronic hypoxic respiratory failure secondary to an exacerbation of his pulmonary fibrosis and superimposed pneumonia. 3. Pulmonary fibrosis. a. Complicated by chronic hypoxic respiratory failure, requiring supplemental O2. b. Status post hospitalization at [facility] from 08/14 to 08/21 for acute on chronic hypoxic respiratory failure secondary to pulmonary fibrosis exacerbation and superimposed pneumonia. c. Improving as of 08/26/2019. 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 a. Status post partial resection of the mandible, followed by radiation therapy and chemo, January of 2019. 5. Severe dysphagia. a. Secondary to head and neck surgery and radiation therapy, January of 2019. b. Status post PEG tube placement, January of 2019. c. Dependent upon PEG tube feeding for nutrition and hydration. 6. Code status, DNR. PLAN: Continue present care. His weight is stable at 145. Complete the antibiotic and slow tapering of prednisone. Physical Therapy will continue to work with him. Job ID: [id number] [facility]TDD
[2019-08-26] MEDS: Polyethylene Glycol 3350 17 GM Packet PER TUBE SCH (09:18)
[2019-08-26] MEDS: Oxybutynin 5 MG TAB PER TUBE SCH ×2 (09:18→20:28)
[2019-08-26] MEDS: predniSONE 20 MG TAB PER TUBE SCH (09:18)
[2019-08-26] MEDS: Metoprolol Tartrate 25 MG TAB PER TUBE SCH ×2 (09:18→20:28)
[2019-08-26] MEDS: Amoxicillin/Potassium Clav 875 MG TAB PER TUBE SCH ×2 (09:18→20:28)
[2019-08-26] MEDS: Enoxaparin Sodium 40 MG/0.4 ML SYRINGE SC SCH (09:18)
[2019-08-26] MEDS: Acetaminophen 325 MG TAB PER TUBE PRN ×2 (09:18→20:28)
[2019-08-26] MEDS: Pantoprazole 40 MG GRANULES PACKET PER TUBE SCH (09:21)
[2019-08-26] MEDS: Albuterol Sulfate 2.5 mg/3 ml Neb NEB PRN (11:01)
[2019-08-26] MEDS: Latanoprost 0.005% Ophth Soln 2.5 ml Bottle EA EYE SCH (20:32)
[2019-08-26] MEDS: Ondansetron ODT 4 MG TAB PER TUBE PRN (21:25)
[2019-08-27] MEDS: predniSONE 20 MG TAB PER TUBE SCH (07:46)
[2019-08-27] MEDS: Pantoprazole 40 MG GRANULES PACKET PER TUBE SCH (07:46)
[2019-08-27] MEDS: Oxybutynin 5 MG TAB PER TUBE SCH ×2 (07:46→20:19)
[2019-08-27] MEDS: Amoxicillin/Potassium Clav 875 MG TAB PER TUBE SCH ×2 (07:46→20:18)
[2019-08-27] MEDS: Metoprolol Tartrate 25 MG TAB PER TUBE SCH ×2 (07:47→20:19)
[2019-08-27] MEDS: Enoxaparin Sodium 40 MG/0.4 ML SYRINGE SC SCH (07:48)
[2019-08-27] MEDS: Polyethylene Glycol 3350 17 GM Packet PER TUBE SCH (07:57)
[2019-08-27] MEDS: Ondansetron ODT 4 MG TAB PER TUBE PRN (07:59)
[2019-08-27] MEDS: Albuterol Sulfate 2.5 mg/3 ml Neb NEB PRN (09:27)
--- NOTE | 2019-08-27 11:15 | PRG ---
DATE OF SERVICE: 08/27/2019 SUBJECTIVE: The patient's is with him this morning, she said yesterday he worked well with physical therapy, exercised in bed, was able to sit on the side of the bed and then was able to stand with help, was transferred into a chair and sat for a while. OBJECTIVE: GENERAL: The patient lying in bed, but is alert, talkative, appears comfortable. VITAL SIGNS: Temperature 97.5, pulse 68, respirations 16, O2 saturation 95% on 3 L, and blood pressure 107/61. LUNGS: The patient has some fine rales that are heard over the anterior and posterior chest that are chronic. There are no wheezes or rhonchi. HEART: Regular rate. EXTREMITIES: No edema. ASSESSMENT: 1. Severe generalized weakness and deconditioning. a. Following hospitalization for pneumonia and pulmonary fibrosis exacerbation. b. Improved, yesterday was able to sit on the side of the bed and up into a chair for a while as of 08/27. 2. Hospitalized at [facility] from 08/14 to 08/21 for acute on chronic hypoxic respiratory failure secondary to exacerbation of his pulmonary fibrosis with superimposed pneumonia. 3. Pulmonary fibrosis. a. Complicated by chronic hypoxic respiratory failure, requiring supplemental O2. b. Status post acute exacerbation and superimposed pneumonia, requiring hospitalization at [facility] from 08/14 to 08/21. c. Improving as of 08/27. 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 a. Status post partial resection of the mandible followed by radiation therapy and chemotherapy, January of 2019. 5. Severe dysphagia. a. Secondary to the neck and surgery and radiation therapy in January of 2019. b. Status post PEG tube placement, January of 2019. c. Dependent upon PEG tube feeding for nutrition and hydration. 6. Code Status, DNR. PLAN: The patient beginning to make a little progress, strength is a little better. We will continue present care. Continue PT and OT. Continue present G-tube feeding schedule. [facility] [id number] [facility]
[2019-08-27] MEDS: Acetaminophen 325 MG TAB PER TUBE PRN (20:19)
[2019-08-27] MEDS: Latanoprost 0.005% Ophth Soln 2.5 ml Bottle EA EYE SCH (20:31)
[2019-08-28] MEDS: Albuterol Sulfate 2.5 mg/3 ml Neb NEB PRN ×2 (04:02→09:11)
[2019-08-28] MEDS: predniSONE 20 MG TAB PER TUBE SCH (08:01)
[2019-08-28] MEDS: Pantoprazole 40 MG GRANULES PACKET PER TUBE SCH (08:01)
[2019-08-28] MEDS: Amoxicillin/Potassium Clav 875 MG TAB PER TUBE SCH ×2 (08:01→20:05)
[2019-08-28] MEDS: Enoxaparin Sodium 40 MG/0.4 ML SYRINGE SC SCH (08:01)
[2019-08-28] MEDS: Polyethylene Glycol 3350 17 GM Packet PER TUBE SCH (08:01)
[2019-08-28] MEDS: Metoprolol Tartrate 25 MG TAB PER TUBE SCH ×2 (08:02→20:04)
[2019-08-28] MEDS: Acetaminophen 325 MG TAB PER TUBE PRN (08:02)
[2019-08-28] MEDS: Ondansetron ODT 4 MG TAB PER TUBE PRN (08:02)
[2019-08-28] MEDS: Oxybutynin 5 MG TAB PER TUBE SCH ×2 (08:02→20:04)
--- NOTE | 2019-08-28 09:09 | PRG ---
DATE OF SERVICE: 08/28/2019 SUBJECTIVE: The patient said he feels better today. Yesterday, he sat on the side of the bed. He thinks his strength is a little better. I reduced his tube feedings yesterday because he was having some nausea and this seems to be better today. OBJECTIVE: GENERAL: The patient is alert, talkative, appears comfortable, in no distress. VITAL SIGNS: Temperature 97.8, pulse 94, respirations 18, O2 saturation 97% on 3 L, and blood pressure 104/56. Weight 141. LUNGS: There are diffuse rales in the anterior-posterior chest that are chronic from his pulmonary fibrosis. There are no wheezes. HEART: Regular rate. EXTREMITIES: No edema. ASSESSMENT: 1. Severe generalized weakness and deconditioning. a. Following recent hospitalization for pneumonia and pulmonary fibrosis exacerbation. b. Improved as of 08/28. 2. Hospitalized at [facility] from 08/14 to 08/21 for acute on chronic hypoxic respiratory failure secondary to exacerbation, pulmonary fibrosis, and superimposed pneumonia. 3. Pulmonary fibrosis. a. Complicated by chronic hypoxic respiratory failure, requiring supplemental O2. b. Status post acute exacerbation with superimposed pneumonia, requiring hospitalization at [facility] from 08/14 to 08/21. c. Continued improvement as of 08/28. 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 a. Status post resection of the part of the mandible with radiation therapy and chemotherapy in January 2019. 5. Severe dysphagia. a. Secondary to the head and neck surgery and radiation in January 2019. b. Status post PEG tube placement in January 2019. c. Dependent upon PEG tube for nutrition and hydration. 6. Code status, DNR. PLAN: Continue the gradual tapering of the prednisone. Complete the Augmentin. Continue PT and OT. Continue present schedule of G-tube feeding. Job ID: [id number] [facility]TDD
[2019-08-28] MEDS: Latanoprost 0.005% Ophth Soln 2.5 ml Bottle EA EYE SCH (20:05)
[2019-08-29] MEDS: predniSONE 20 MG TAB PER TUBE SCH (08:29)
[2019-08-29] MEDS: Polyethylene Glycol 3350 17 GM Packet PER TUBE SCH (08:29)
[2019-08-29] MEDS: Pantoprazole 40 MG GRANULES PACKET PER TUBE SCH (08:29)
[2019-08-29] MEDS: Oxybutynin 5 MG TAB PER TUBE SCH ×2 (08:29→20:45)
[2019-08-29] MEDS: Enoxaparin Sodium 40 MG/0.4 ML SYRINGE SC SCH (08:30)
[2019-08-29] MEDS: Metoprolol Tartrate 25 MG TAB PER TUBE SCH ×2 (08:30→20:45)
[2019-08-29] MEDS: Ondansetron ODT 4 MG TAB PER TUBE PRN (09:14)
[2019-08-29] MEDS ORDERED: Metoclopramide 10 MG/10 ML UDCUP PER TUBE SCH (11:30)
[2019-08-29] MEDS ORDERED: Ondansetron ODT 4 MG TAB PER TUBE SCH (11:30)
[2019-08-29] MEDS: Metoclopramide HCl 10 MG TAB PO SCH ×3 (12:11→20:44)
[2019-08-29] MEDS: Ondansetron ODT 4 MG TAB PER TUBE SCH ×2 (16:45→19:35)
[2019-08-29] MEDS: Latanoprost 0.005% Ophth Soln 2.5 ml Bottle EA EYE SCH (20:44)
[2019-08-30] MEDS: Metoclopramide HCl 10 MG TAB PO SCH ×4 (07:17→21:07)
[2019-08-30] MEDS: Ondansetron ODT 4 MG TAB PER TUBE SCH ×4 (07:18→19:40)
[2019-08-30] MEDS: Pantoprazole 40 MG GRANULES PACKET PER TUBE SCH (09:08)
[2019-08-30] MEDS: Metoprolol Tartrate 25 MG TAB PER TUBE SCH ×2 (09:08→21:07)
[2019-08-30] MEDS: Enoxaparin Sodium 40 MG/0.4 ML SYRINGE SC SCH (09:08)
[2019-08-30] MEDS: Polyethylene Glycol 3350 17 GM Packet PER TUBE SCH (09:08)
[2019-08-30] MEDS: Oxybutynin 5 MG TAB PER TUBE SCH ×2 (09:08→21:08)
[2019-08-30] MEDS: predniSONE 20 MG TAB PER TUBE SCH (09:08)
[2019-08-30] MEDS: Latanoprost 0.005% Ophth Soln 2.5 ml Bottle EA EYE SCH (21:08)
[2019-08-31] MEDS: Metoclopramide HCl 10 MG TAB PO SCH ×4 (07:23→22:05)
[2019-08-31] MEDS: Ondansetron ODT 4 MG TAB PER TUBE SCH ×4 (07:23→20:02)
[2019-08-31] MEDS: Oxybutynin 5 MG TAB PER TUBE SCH ×2 (09:31→22:06)
[2019-08-31] MEDS: Enoxaparin Sodium 40 MG/0.4 ML SYRINGE SC SCH (09:31)
[2019-08-31] MEDS: Acetaminophen 325 MG TAB PER TUBE PRN (09:32)
[2019-08-31] MEDS: Metoprolol Tartrate 25 MG TAB PER TUBE SCH ×2 (09:32→22:05)
[2019-08-31] MEDS: predniSONE 20 MG TAB PER TUBE SCH (09:32)
[2019-08-31] MEDS: Polyethylene Glycol 3350 17 GM Packet PER TUBE SCH (09:32)
[2019-08-31] MEDS: Pantoprazole 40 MG GRANULES PACKET PER TUBE SCH (09:33)
[2019-08-31] MEDS: Latanoprost 0.005% Ophth Soln 2.5 ml Bottle EA EYE SCH (22:06)
[2019-09-01] MEDS: Metoclopramide HCl 10 MG TAB PO SCH ×4 (07:32→21:20)
[2019-09-01] MEDS: Ondansetron ODT 4 MG TAB PER TUBE SCH ×4 (07:32→19:44)
--- NOTE | 2019-09-01 07:37 | PRG ---
DATE OF SERVICE: 08/29/2019 SUBJECTIVE: This morning, the patient very nauseated after he had received his first morning feeding. Apparently, this has happened most mornings, had kept back on the volume of formula. This had seemed to help much at home. He usually gets Zofran before the feeding that his thinks it helps some. He does have a metoclopramide, but has not been taking this regularly. Physical therapist said the patient is not able to work with him much in the mornings due to the nausea. They usually will come back in the afternoon and try again. At times, he is able to sit up on the side of the bed, and on one occasion, he has been able to get up to the chair for a while. Progress has been very slow. OBJECTIVE: GENERAL: The patient is sitting up in bed, is nauseated. VITAL SIGNS: Show temperature 96, pulse 76, respirations 20, O2 saturations 98 % on 3 L, blood pressure 108/60. LUNGS: Diffuse low fine rales that are chronic. HEART: Regular rate. ABDOMEN: Soft, nontender. ASSESSMENT: 1. Severe generalized weakness and deconditioning. a. Following recent hospitalization for pneumonia and pulmonary fibrosis exacerbation. b. Remains extremely weak and making very little progress. Occasionally, we will tolerate sitting up on the side of the bed and on rare occasion up in a chair as of 08/29. 2. Hospitalized at [facility] from 08/14 to 08/21 for acute hypoxic respiratory failure secondary to pulmonary fibrosis exacerbation and superimposed pneumonia. 3. Pulmonary fibrosis. a. Complicated by chronic hypoxic respiratory failure requiring chronic supplemental O2. b. Status post acute exacerbation with superimposed pneumonia requiring hospitalization at [facility], 08/14/2019 to 2019. c. Improved as of 08/29. 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 a. Status post resection, part of the mandible with radiation therapy and chemotherapy, January 2019. 5. Severe dysphagia. a. Secondary to head and neck surgery and radiation, January 2019. b. Status post PEG tube placement, January 2019. c. Depended upon PEG tube for nutrition and hydration. d. Complicated by nausea after feeding, suspect from delayed gastric emptying. 6. Code status. DNR. PLAN: Continue efforts for PT and OT. We will try the patient on the metoclopramide 5 mg per G-tube a.c. and at bedtime, and then use the Zofran oral disintegrating tablet sublingual p.r.n. Job ID: [id number] [facility]
--- NOTE | 2019-09-01 07:38 | PRG ---
DATE OF SERVICE: 08/31/2019 SUBJECTIVE: The patient said he is feeling better today. He has not had the nausea this morning. His did bring in a bottle of gabapentin 250 mg per 5 mL that he would take 2 mL at bedtime, if he had jaw pain. He has not had any recently. When he has had been a little sore, the Tylenol seems to help. We will wait on reordering this. OBJECTIVE: GENERAL: The patient is talkative, looks much better. His daughter is with him. VITAL SIGNS: His temperature is 97.2, pulse 76, respirations 18, O2 saturation 96% on 3 L, and blood pressure 110/65. LUNGS: There are fine rales heard over the chest. There are no wheezes or rhonchi. There are good breath sounds. HEART: Regular rate. EXTREMITIES: No edema. ASSESSMENT: 1. Severe generalized weakness and deconditioning. a. Following recent hospitalization for pneumonia and pulmonary fibrosis exacerbation. b. Gradual improvement as of 08/31. 2. Hospitalized at [facility] from 08/14 to 08/21 for acute on chronic hypoxic respiratory failure secondary to pulmonary fibrosis exacerbation and superimposed pneumonia. 3. Pulmonary fibrosis. a. Complicated by chronic hypoxic respiratory failure, requiring supplemental O2. b. Status post acute exacerbation with superimposed pneumonia requiring hospitalization from 08/14 to 08/21. c. Continued improvement as of 08/31. 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 a. Status post resection, part of the right mandible with radiation therapy and chemotherapy January 2019. 5. Severe dysphagia. a. Secondary to the head and neck surgery and radiation January 2019. b. Status post percutaneous endoscopic gastrostomy tube placement in 2019. c. Depended upon percutaneous endoscopic gastrostomy tube for nutrition and hydration. d. Nausea, suspect related to delayed gastric emptying that is improved as of 08/31/2019. 6. Code status. DNR. PLAN: Continue present care. Continue the metoclopramide before meals and the Zofran as needed. Continue present tube feeding schedule. Job ID: [id number] [facility]TDD
[2019-09-01] MEDS: Metoprolol Tartrate 25 MG TAB PER TUBE SCH ×2 (09:12→21:20)
[2019-09-01] MEDS: Pantoprazole 40 MG GRANULES PACKET PER TUBE SCH (09:12)
[2019-09-01] MEDS: Polyethylene Glycol 3350 17 GM Packet PER TUBE SCH (09:12)
[2019-09-01] MEDS: Oxybutynin 5 MG TAB PER TUBE SCH ×2 (09:12→21:20)
[2019-09-01] MEDS: predniSONE 20 MG TAB PER TUBE SCH (09:12)
[2019-09-01] MEDS: Enoxaparin Sodium 40 MG/0.4 ML SYRINGE SC SCH (09:12)
--- NOTE | 2019-09-01 11:11 | PRG ---
DATE OF SERVICE: 09/01/2019 SUBJECTIVE: The patient said he is doing good this morning. He had no complaint. Denies any nausea. He is receiving the metoclopramide before each of the feedings and bedtime. OBJECTIVE: GENERAL: The patient looks better. He appears in no acute distress. VITAL SIGNS: His temperature is 97.7, pulse 67, respirations 22, O2 saturation 97 on 4 L, and blood pressure 116/64. LUNGS: The patient has some fine rales over the anterior and posterior chest with no wheezes or rhonchi. HEART: Regular rate. EXTREMITIES: No edema. ASSESSMENT: 1. Severe generalized weakness and deconditioning. a. Following hospitalization for pneumonia and pulmonary fibrosis exacerbation. b. Slow, gradual improvement as of 09/01. 2. Hospitalized at [facility] from 08/14 to 08/21 for acute on chronic hypoxic respiratory failure secondary to pulmonary fibrosis exacerbation with superimposed pneumonia. 3. Pulmonary fibrosis. a. Complicated by chronic hypoxic respiratory failure, requiring supplemental O2. b. Status post acute exacerbation with superimposed pneumonia, requiring hospitalization from 08/14 to 08/21. c. Continued improvement as of 09/01. 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 a. Status post partial resection of the right mandible with radiation therapy and chemo, January 2019. 5. Severe dysphagia. a. Secondary to the head and neck surgery and radiation. b. Status post percutaneous endoscopic gastrostomy tube placement in January 2019. c. Depended upon percutaneous endoscopic gastrostomy tube for nutrition and hydration. d. Nausea, suspect related to delayed gastric emptying, that is improving as of 09/01. 6. Code status, DNR. PLAN: Continue present care. Continue PT and OT. Continue present tube feeding. Job ID: [id number] [facility]
[2019-09-01] MEDS: Latanoprost 0.005% Ophth Soln 2.5 ml Bottle EA EYE SCH (21:20)
[2019-09-02] MEDS: Metoclopramide HCl 10 MG TAB PO SCH ×4 (07:43→21:35)
[2019-09-02] MEDS: Ondansetron ODT 4 MG TAB PER TUBE SCH ×4 (07:43→21:33)
[2019-09-02] MEDS: Metoprolol Tartrate 25 MG TAB PER TUBE SCH ×2 (09:09→21:36)
[2019-09-02] MEDS: Oxybutynin 5 MG TAB PER TUBE SCH ×2 (09:09→21:35)
[2019-09-02] MEDS: Pantoprazole 40 MG GRANULES PACKET PER TUBE SCH (09:09)
[2019-09-02] MEDS: predniSONE 20 MG TAB PER TUBE SCH (09:09)
[2019-09-02] MEDS: Enoxaparin Sodium 40 MG/0.4 ML SYRINGE SC SCH (09:09)
[2019-09-02] MEDS: Polyethylene Glycol 3350 17 GM Packet PER TUBE SCH (09:09)
--- NOTE | 2019-09-02 09:25 | PRG ---
DATE OF SERVICE: 09/02/2019 SUBJECTIVE: The patient's is visiting with him this morning. She said yesterday he sat up for quite a while. The nausea does seem to be a little better in the morning. OBJECTIVE: GENERAL: The patient is alert, appears comfortable, and in no distress. VITAL SIGNS: His temperature is 97.2, pulse 80, respirations 18, O2 saturation 93% on room air, and blood pressure 111/62. LUNGS: The patient has diffuse fine rales over the anterior and posterior chest that are chronic. There are no wheezes or rhonchi. EXTREMITIES: No edema. ASSESSMENT: 1. Severe generalized weakness and deconditioning. a. Following hospitalization for pneumonia and pulmonary fibrosis exacerbation. b. Gradual improvement, sitting up for longer periods in a bedside chair as of 09/02. 2. Hospitalized at [facility] from 08/14 to 08/21 for acute on chronic hypoxic respiratory failure secondary to a pulmonary fibrosis exacerbation and superimposed pneumonia. 3. Pulmonary fibrosis. a. Complicated by chronic hypoxic respiratory failure, requiring supplemental O2. b. Status post acute exacerbation with superimposed pneumonia, requiring hospitalization from 08/14/2019 to 08/21/2019. c. Improved as of 09/02. 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 a. Status post partial resection of the right mandible with radiation therapy and chemo, January of 2019. 5. Severe dysphagia. a. Secondary to the head and neck surgery and radiation. b. Status post PEG tube placement, January of 2019. c. Depended upon PEG tube for nutrition and hydration. d. Nausea, suspect secondary to delayed gastric emptying that is improved as of 09/02. 6. Code status, DNR. PLAN: Continue present care. Continue PT and OT. Job ID: [id number] [facility]
[2019-09-02] MEDS: Latanoprost 0.005% Ophth Soln 2.5 ml Bottle EA EYE SCH (21:36)
[2019-09-03] MEDS: Acetaminophen 325 MG TAB PER TUBE PRN (02:03)
[2019-09-03] MEDS: Ondansetron ODT 4 MG TAB PER TUBE SCH ×4 (07:25→21:55)
[2019-09-03] MEDS: Metoclopramide HCl 10 MG TAB PO SCH ×4 (07:25→21:55)
[2019-09-03] MEDS: Enoxaparin Sodium 40 MG/0.4 ML SYRINGE SC SCH (09:37)
[2019-09-03] MEDS: Fluconazole 100 MG TAB PER TUBE SCH (09:37)
[2019-09-03] MEDS: Pantoprazole 40 MG GRANULES PACKET PER TUBE SCH (09:37)
[2019-09-03] MEDS: Oxybutynin 5 MG TAB PER TUBE SCH ×2 (09:37→21:56)
[2019-09-03] MEDS: Polyethylene Glycol 3350 17 GM Packet PER TUBE SCH (09:38)
[2019-09-03] MEDS: Metoprolol Tartrate 25 MG TAB PER TUBE SCH ×2 (09:38→21:56)
[2019-09-03] MEDS: predniSONE 20 MG TAB PER TUBE SCH (09:38)
--- NOTE | 2019-09-03 11:01 | PRG ---
DATE OF SERVICE: 09/03/2019 SUBJECTIVE: Nurses said the patient has been tolerating, sitting up in a chair, sitting for longer periods, seemed a little stronger. This morning while given mouth care, they noticed there was increased odor about the mouth. His tube feedings have been going well, but seemed like when he gets too much in his stomach, he gets nauseated and creates a little coughing. This has been revised to try to reduce some of the volume. He is now getting the Fibersource 1.2 calories per mL, 12 ounces four times during the day, and the flush has been reduced from 90 to 60 mL before and after feeding. We will give the additional water 60 mL between feedings four times a day. He is getting just a minimal nutritional requirement. If he tolerates this, we will try to gradually increase his Fibersource. OBJECTIVE: GENERAL: The patient is alert, appears comfortable, in no distress. VITAL SIGNS: Show a temperature 97.4, pulse 75, O2 saturations 97% on 4 L, respirations are 18, blood pressure 104/57. MOUTH: There is odor coming from the mouth. No lesions were seen in the mouth. The tongue and buccal mucosa are pink. There is a little yellow crusting on the tongue, but much less. This may all represent a yeast infection that is creating the odor, could not see in the hypopharynx. LUNGS: Diffuse rales are unchanged. There are no wheezes or rhonchi. HEART: Regular rate. EXTREMITIES: No edema. ASSESSMENT: 1. Severe generalized weakness and deconditioning. a. Following hospitalization for pneumonia and pulmonary fibrosis exacerbation. b. Gradual improvement. Sitting up for longer periods in bedside chair as of 09/03. 2. Hospitalized at [facility] from 08/14 to 08/21 for acute on chronic hypoxic respiratory failure secondary to pulmonary fibrosis exacerbation and superimposed pneumonia. 3. Pulmonary fibrosis. a. Complicated by chronic hypoxic respiratory failure requiring supplemental O2. b. Status post exacerbation with superimposed pneumonia requiring hospitalization from 08/14 to 08/21/2019. c. Improved as of 09/03. 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 a. Status post partial resection of the right mandible with radiation therapy and chemo, January of 2019. 5. Severe dysphagia. a. Secondary to head and neck surgery and radiation. b. Status post PEG tube placement, January of 2019. c. Depended upon PEG tube for nutrition hydration. d. Nausea, suspect secondary to delayed gastric emptying that is improved as of 09/03. 6. Code status, DNR. 7. Oral candidiasis. PLAN: Place the patient on Diflucan 100 mg per G-tube for 10 days. Modify the feeding schedule, see present illness. It seems that when he gets too large for volume, it creates more nausea. We will continue the metoclopramide to help with the probable delayed gastric emptying. Continue PT and OT. Job ID: [id number] [facility]D
[2019-09-03] MEDS: Latanoprost 0.005% Ophth Soln 2.5 ml Bottle EA EYE SCH (21:56)
[2019-09-04] MEDS: Acetaminophen 325 MG TAB PER TUBE PRN ×2 (01:00→20:37)
[2019-09-04] MEDS: Ondansetron ODT 4 MG TAB PER TUBE SCH ×4 (07:12→20:30)
[2019-09-04] MEDS: Metoclopramide HCl 10 MG TAB PO SCH ×4 (07:12→20:37)
[2019-09-04] MEDS: predniSONE 20 MG TAB PER TUBE SCH (08:55)
[2019-09-04] MEDS: Polyethylene Glycol 3350 17 GM Packet PER TUBE SCH (08:55)
[2019-09-04] MEDS: Fluconazole 100 MG TAB PER TUBE SCH (08:55)
[2019-09-04] MEDS: Oxybutynin 5 MG TAB PER TUBE SCH ×2 (08:55→20:37)
[2019-09-04] MEDS: Metoprolol Tartrate 25 MG TAB PER TUBE SCH ×2 (08:55→20:37)
[2019-09-04] MEDS: Enoxaparin Sodium 40 MG/0.4 ML SYRINGE SC SCH (08:55)
[2019-09-04] MEDS: Pantoprazole 40 MG GRANULES PACKET PER TUBE SCH (08:55)
--- NOTE | 2019-09-04 08:59 | PRG ---
DATE OF SERVICE: 09/04/2019 SUBJECTIVE: This morning, the patient thinks he is doing good. Yesterday afternoon, he had an episode of vomiting while he was receiving mouth care. No subsequent episodes of vomiting of the formula. OBJECTIVE: GENERAL: The patient is alert, appears comfortable, in no distress. VITAL SIGNS: Temperature 98.5, pulse 73, respirations 22, O2 saturation 93 on 4 L, and blood pressure 101/56. LUNGS: Have diffuse rales anterior and posterior. HEART: Regular rate. ASSESSMENT: 1. Severe generalized weakness and deconditioning. a. Following hospitalization for pneumonia and pulmonary fibrosis exacerbation. b. Gradual improvement. Sitting up in a bedside chair for longer periods as of 09/04. 2. Hospitalized at [facility] from 08/14 to 08/21 for acute on chronic hypoxic respiratory failure secondary to pulmonary fibrosis exacerbation and superimposed pneumonia. 3. Pulmonary fibrosis. a. Complicated by chronic hypoxic respiratory failure, requiring continuous supplemental O2. b. Status post exacerbation with superimposed pneumonia, requiring hospitalization from 08/14/2019 to 08/21/2019. c. Improved as of 09/04. 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 a. Status post partial resection of the right mandible with radiation therapy and chemotherapy in January 2019. 5. Severe dysphagia. a. Secondary to head and neck surgery and radiation. b. Status post PEG tube placement, January of 2019. c. Depended upon PEG tube for nutrition and hydration. d. Nausea secondary to delayed gastric emptying. 6. Oral candidiasis. 7. Code status, DNR. PLAN: Continue present care. The episode of vomiting may have been triggered by the mouth care. We will continue the present feeding schedule. If he continues to have fullness and nausea, may try switching him to continuous low rate of feeding with a feeding pump for nutrition and water. Job ID: [id number] [facility]TDD
[2019-09-04 12:01] VITALS: BMI 20.4
[2019-09-04] MEDS: Latanoprost 0.005% Ophth Soln 2.5 ml Bottle EA EYE SCH (20:41)
[2019-09-05] MEDS: Ondansetron ODT 4 MG TAB PER TUBE SCH ×4 (07:36→20:01)
[2019-09-05] MEDS: Metoclopramide HCl 10 MG TAB PO SCH ×4 (07:37→20:02)
[2019-09-05] MEDS: predniSONE 20 MG TAB PER TUBE SCH (10:17)
[2019-09-05] MEDS: Oxybutynin 5 MG TAB PER TUBE SCH ×2 (10:17→20:03)
[2019-09-05] MEDS: Metoprolol Tartrate 25 MG TAB PER TUBE SCH ×2 (10:17→20:03)
[2019-09-05] MEDS: Fluconazole 100 MG TAB PER TUBE SCH (10:18)
[2019-09-05] MEDS: Enoxaparin Sodium 40 MG/0.4 ML SYRINGE SC SCH (10:18)
[2019-09-05] MEDS: Pantoprazole 40 MG GRANULES PACKET PER TUBE SCH (10:18)
[2019-09-05] MEDS: Polyethylene Glycol 3350 17 GM Packet PER TUBE SCH (10:19)
--- NOTE | 2019-09-05 12:16 | PRG ---
DATE OF SERVICE: 09/05/2019 SUBJECTIVE: The patient has been doing all right. He has been tolerating sitting up in his [place]te chair for longer periods. He still has intermittent nausea. The nursing staff has been stretching his feedings out giving him smaller amounts, which he seems to tolerate and do better. Nutrition has recommended a trial of continuous feedings with the Fibersource HN at 1.2 calories/mL at 80 mL/h for 20 hours providing 1920 kilocalories in 24 hours, also water at 75 mL every 3 hours, which would provide him with 1740 mL of water in 24 hours. We will try this and see how he does. OBJECTIVE: GENERAL: The patient is sitting up in Mayte chair. He looks comfortable, in no distress. VITAL SIGNS: His temp is 98.1, pulse 90, respirations 20, O2 sat 94% on 4 L, and blood pressure 123/84. LUNGS: Have diffuse rales, anterior and posterior chest. HEART: Regular rate. ASSESSMENT: 1. Severe generalized weakness and deconditioning. a. Following hospitalization for pneumonia and pulmonary fibrosis exacerbation. b. Gradually improving. Tolerating sitting up in a Mayte chair for longer periods as of 09/05. 2. Hospitalized at [facility] from 08/14 to 08/21 for acute on chronic hypoxic respiratory failure secondary to pulmonary fibrosis exacerbation and superimposed pneumonia. 3. Pulmonary fibrosis. a. Complicated by chronic hypoxic respiratory failure, requiring continuous supplemental O2. b. Status post exacerbation with superimposed pneumonia, requiring hospitalization from 08/14 to 08/21/2019. c. Improved as of 09/05. 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 a. Status post partial resection of the right mandible with radiation therapy and chemo, January 2019. 5. Severe dysphagia. a. Secondary to head and neck surgery and radiation. b. Status post PEG tube placement, January 2019. c. Depended upon PEG tube for nutrition and hydration. d. Nausea secondary to probable delayed gastric emptying. Not tolerating the bolus feedings well as of 09/05. 6. Oral candidiasis. a. Improved as of 09/05. 7. Code status, DNR. PLAN: We will stop the bolus feedings and try the recommendations of speech therapist using Fibersource HN 1.2 kilocalories per mL at 80 mL/h for 20 hours /24h and water at 75 mL every 3 hours, which will provide close to 1743 mL of water. Continue PT and OT. Job ID: [id number] MTDD
[2019-09-05] MEDS: Latanoprost 0.005% Ophth Soln 2.5 ml Bottle EA EYE SCH (20:02)
[2019-09-05] MEDS: Acetaminophen 325 MG TAB PER TUBE PRN (20:05)
[2019-09-06] MEDS: Acetaminophen 325 MG TAB PER TUBE PRN (03:10)
[2019-09-06 05:13] LABS: Bilirubin Negative (Negative); Blood, Urine Negative (Negative); Clarity Clear (Clear); Glucose, Urine (Dipstick) Negative (Negative); Leukocyte Negative (Negative); Nitrite Negative (Negative); Protein, Urine (Dipstick) 30 mg/dL (Neg-Trace)
[2019-09-06 05:18] LABS: Urine Culture Reflex No No
[2019-09-06 05:48] LABS: Bacteria/HPF None Seen HPF (None Seen); RBC/HPF 0-3 HPF (0-3); Squamous Epithelial 0-3 HPF (0-3); WBC/HPF 0-3 HPF (0-3)
[2019-09-06] MEDS: Ondansetron ODT 4 MG TAB PER TUBE SCH ×4 (07:51→19:53)
[2019-09-06] MEDS: Metoclopramide HCl 10 MG TAB PO SCH ×4 (07:51→21:38)
[2019-09-06] MEDS: Enoxaparin Sodium 40 MG/0.4 ML SYRINGE SC SCH (07:52)
[2019-09-06] MEDS: predniSONE 20 MG TAB PER TUBE SCH (09:25)
[2019-09-06] MEDS: Fluconazole 100 MG TAB PER TUBE SCH (09:25)
[2019-09-06] MEDS: Oxybutynin 5 MG TAB PER TUBE SCH ×2 (09:25→21:38)
[2019-09-06] MEDS: Pantoprazole 40 MG GRANULES PACKET PER TUBE SCH (09:25)
[2019-09-06] MEDS: Polyethylene Glycol 3350 17 GM Packet PER TUBE SCH ×2 (09:26→09:29)
[2019-09-06] MEDS: Metoprolol Tartrate 25 MG TAB PER TUBE SCH ×2 (09:26→21:39)
[2019-09-06] MEDS ORDERED: Sodium Chloride 0.65% Nasal 44 ML BOT EA NARE PRN (14:40)
[2019-09-06] MEDS ORDERED: Lorazepam 1 MG TAB PO PRN (19:45)
[2019-09-06] MEDS: Clotrimazole 1% Cream 15 GM TUBE TOP SCH (21:36)
[2019-09-06] MEDS: Latanoprost 0.005% Ophth Soln 2.5 ml Bottle EA EYE SCH (21:37)
[2019-09-06] MEDS: GABAPENTIN 250 MG/5 ML PER TUBE SCH (21:39)
[2019-09-06] MEDS: Lorazepam 1 MG TAB PER TUBE PRN (21:42)
[2019-09-07] MEDS: Metoclopramide HCl 10 MG TAB PO SCH ×4 (08:06→20:18)
[2019-09-07] MEDS: Pantoprazole 40 MG GRANULES PACKET PER TUBE SCH (08:06)
[2019-09-07] MEDS: Metoprolol Tartrate 25 MG TAB PER TUBE SCH ×2 (08:06→20:18)
[2019-09-07] MEDS: Ondansetron ODT 4 MG TAB PER TUBE SCH ×4 (08:06→20:18)
[2019-09-07] MEDS: Enoxaparin Sodium 40 MG/0.4 ML SYRINGE SC SCH (08:07)
[2019-09-07] MEDS: predniSONE 10 MG TAB PO SCH (08:07)
[2019-09-07] MEDS: Fluconazole 100 MG TAB PER TUBE SCH (08:07)
[2019-09-07] MEDS: Oxybutynin 5 MG TAB PER TUBE SCH ×2 (08:07→20:18)
[2019-09-07] MEDS: Polyethylene Glycol 3350 17 GM Packet PER TUBE SCH (08:07)
[2019-09-07] MEDS: Clotrimazole 1% Cream 15 GM TUBE TOP SCH ×2 (08:09→20:26)
[2019-09-07] MEDS: Acetaminophen 325 MG TAB PER TUBE PRN ×2 (08:28→17:33)
--- NOTE | 2019-09-07 17:56 | PRG ---
DATE OF SERVICE: 09/07/2019 SUBJECTIVE: Last night, the patient was complaining of just kind of hurting all over. At home, his gives him 100 mg of gabapentin, which seems to help him. This was ordered. The family had also requested something to help him with his nervousness and restlessness. He was given lorazepam to use and this did seem to help him last night. The tube feeding seemed to go well. First day on this, he had multiple loose BMs, but this has slowed and he seems to be tolerating this better without the nausea. His mouth is requiring meticulous care, which seems to be helping not only the appearance, but also the odor. OBJECTIVE: GENERAL: The patient lying in bed with the head elevated. He is alert, appears comfortable. VITAL SIGNS: His temperature is 97.5, pulse 89, respirations 20, O2 saturations 90% on 4 L, and blood pressure 125/63. HEENT: The mucous membranes are moist. The tongue has a little yellow crusting present, but overall the mouth looks better. There was not the odor present that had been present previously. LUNGS: Diffuse rales over the anterior and posterior chest. HEART: Regular rate. ASSESSMENT: 1. Severe generalized weakness and deconditioning. a. Follow hospitalization for pneumonia and pulmonary fibrosis exacerbation. b. Gradually improving. Tolerating sitting up in a Mayte chair as of 09/07. 2. Hospitalized at [facility] from 08/14 to 08/21 for acute on chronic hypoxic respiratory failure secondary to pulmonary fibrosis exacerbation and superimposed pneumonia. 3. Pulmonary fibrosis. a. Complicated by chronic hypoxic respiratory failure, requiring continuous supplemental O2. b. Status post exacerbation with superimposed pneumonia, requiring hospitalization from 08/14 to 08/21/2019. c. Improved as of 09/07. 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 a. Status post partial resection of the right mandible with radiation therapy and chemo in January 2019. 5. Severe dysphagia. a. Secondary to head and neck surgery and radiation. b. Status post PEG tube placement in January 2019. c. Dependent upon PEG tube for nutrition and hydration. d. Nausea secondary to probable delayed gastric emptying. e. Did not tolerate bolus feeding, now on continuous feeding, which seems to be going well for him as of 09/07. 6. Oral candidiasis. a. Improved as of 09/07. 7. Anxiety and restlessness. a. Improved on lorazepam. 8. Code status, DNR. PLAN: Continue present care. Job ID: [id number] [facility]
[2019-09-07] MEDS: Latanoprost 0.005% Ophth Soln 2.5 ml Bottle EA EYE SCH (20:23)
[2019-09-07] MEDS: Lorazepam 1 MG TAB PER TUBE PRN (20:26)
[2019-09-07] MEDS: Albuterol Sulfate 2.5 mg/3 ml Neb NEB PRN (20:27)
[2019-09-07] MEDS: GABAPENTIN 250 MG/5 ML PER TUBE SCH (20:29)
[2019-09-08] MEDS: Metoclopramide HCl 10 MG TAB PO SCH ×4 (07:33→20:43)
[2019-09-08] MEDS: Ondansetron ODT 4 MG TAB PER TUBE SCH ×4 (07:33→20:42)
[2019-09-08] MEDS ORDERED: Morphine 10 MG/0.5 ML ORAL SYRINGE SL PRN ×2 (08:11→08:12)
[2019-09-08] MEDS: Fluconazole 100 MG TAB PER TUBE SCH (09:09)
[2019-09-08] MEDS: Metoprolol Tartrate 25 MG TAB PER TUBE SCH ×2 (09:09→20:44)
[2019-09-08] MEDS: Lorazepam 1 MG TAB PER TUBE PRN ×2 (09:09→18:03)
[2019-09-08] MEDS: predniSONE 10 MG TAB PO SCH (09:10)
[2019-09-08] MEDS: Enoxaparin Sodium 40 MG/0.4 ML SYRINGE SC SCH (09:10)
[2019-09-08] MEDS: Pantoprazole 40 MG GRANULES PACKET PER TUBE SCH (09:10)
[2019-09-08] MEDS: Clotrimazole 1% Cream 15 GM TUBE TOP SCH ×2 (09:11→20:43)
[2019-09-08] MEDS: Polyethylene Glycol 3350 17 GM Packet PER TUBE SCH (09:11)
--- NOTE | 2019-09-08 11:23 | PRG ---
DATE OF SERVICE: 09/08/2019 SUBJECTIVE: Nurse said this morning Mr. Engel has been moaning off and on throughout the night and this morning, could not localize any pain, could not really understand what he was talking about this morning. His tube feedings have been going well. OBJECTIVE: GENERAL: The patient is in bed with the head elevated about 45 degrees. He is alert, but moaning and when attempting to talk, could not understand him. VITAL SIGNS: Show a temperature 97.3, pulse 73, respirations 20, O2 saturation 94% on 4 L, and blood pressure 110/65. LUNGS: Diffuse rales throughout the anterior and posterior chest. HEART: Regular rate. EXTREMITIES: No edema. ASSESSMENT: 1. Severe generalized weakness and deconditioning. a. Following hospitalization for pneumonia and pulmonary fibrosis exacerbation. b. Improved where he was sitting up in a chair some, but overall condition has been one of gradual decline as of 09/08. 2. Hospitalized at [facility] from 08/14 to 08/21 for acute on chronic hypoxic respiratory failure secondary to pulmonary fibrosis exacerbation and superimposed pneumonia. 3. Pulmonary fibrosis. a. Complicated by chronic hypoxic respiratory failure, requiring continuous supplemental O2. b. Status post exacerbation with superimposed pneumonia, requiring hospitalization from 08/14/2019 to 08/21/2019. c. Improved as of 09/08. 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 a. Status post partial resection of the right mandible with radiation therapy and chemo, January of 2019. 5. Severe dysphagia. a. Secondary to head and neck surgery and radiation. b. Status post PEG tube placement, January of 2019. c. Dependent on PEG tube for nutrition and hydration. d. Nausea secondary to delayed gastric emptying, improved. e. Did not tolerate bolus feedings, but now doing better on continuous feeding as of 09/08. 6. Oral candidiasis. a. Improved as of 09/08. 7. Generalized decline. a. Over the last several months, the patient has exhibited continual decline. b. Presently having problems with restlessness and pain. 8. Code status, DNR. PLAN: The patient's condition has been one of gradual decline over the last several months. He has had significant change in his condition with recent hospitalization for pneumonia and exacerbation of COPD. He is now requiring the continuous feeding. He is making just a little bit of progress with his strength, but overall his condition is of decline. He is restless and uncomfortable. I spoke with Mrs. Engel and she certainly has seen his decline and said that Mr. Engel is a DNR and he did not want any extraordinary care. We are all in agreement that his care should be centered around comfort. We will continue to try the physical therapy in an effort to see if he will improve any. We will continue the feeding. We will also add morphine sublingual for the restlessness and pain. Job ID: [id number] [facility]
[2019-09-08] MEDS: Latanoprost 0.005% Ophth Soln 2.5 ml Bottle EA EYE SCH (20:42)
[2019-09-08] MEDS: GABAPENTIN 250 MG/5 ML PER TUBE SCH (20:45)
[2019-09-09] MEDS: Albuterol Sulfate 2.5 mg/3 ml Neb NEB PRN (07:21)
[2019-09-09 09:03] VITALS: BP 76/42; TEMP 99.1
--- NOTE | 2019-09-10 07:58 | DIS ---
DATE OF ADMISSION: 08/21/2019 DATE OF DISCHARGE: 09/09/2019 DATE OF : 09/09/2019. FINAL DIAGNOSES: 1. Severe generalized weakness and deconditioning. a. Following hospitalization for pneumonia and pulmonary fibrosis exacerbation. 2. Hospitalized at [facility] from 08/14 to 08/21 for [id number] hypoxic respiratory failure secondary to pulmonary fibrosis exacerbation and superimposed pneumonia. 3. Pulmonary fibrosis. a. Complicated by chronic hypoxic respiratory failure requiring continuous supplemental O2. b. Status post exacerbation with superimposed pneumonia requiring hospitalization from 08/14/2019 to 08/21/2019. c. Complicated by acute hypoxic respiratory failure, hypotension, unresponsiveness and on the morning of 09/09/2019, possibly secondary to an aspiration. 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 a. Status post partial resection of the right mandible with radiation therapy and chemo, January of 2019. 5. Severe dysphagia. a. Secondary to the head and neck surgery and radiation. b. Status post PEG tube placement, January of 2019. c. Dependent on PEG tube for nutrition and hydration. d. Complicated by nausea secondary to delayed gastric emptying. e. Did not tolerate bolus feeding and required switching to continuous feeding. 6. Oral candidiasis. 7. Generalized decline. 8. Code status, DNR. 9. Cause of , respiratory failure secondary to pulmonary fibrosis with probable aspiration as a consequence of his severe dysphagia requiring tube feeding as a result of his cancer of the mandible and partial removal of mandible and radiation therapy. SUMMARY: Mr. 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 As a consequence of this, he was left with severe dysphagia and required a PEG tube placement in January of 2019 and has been dependent upon PEG tube feedings for his nutrition and hydration. He also has a history of pulmonary fibrosis with chronic hypoxic respiratory failure requiring continuous O2. He had been hospitalized at [facility] from 08/14/2019 to 08/21/2019 for [id number] hypoxic respiratory failure secondary to an exacerbation of his pulmonary fibrosis and superimposed pneumonia. His condition is one of gradual decline. He was left extremely weak and bed confined. He was transferred to [facility] in the hopes that with therapy, his functional capabilities would improve. While in the hospital initially, he was completely bed confined, but working with physical therapy. Gradually, he was able to be progressed up to where he was sitting for a while in a chair. Initially his feedings were done by bolus, but he did not seem to tolerate this. He had a lot of nausea with the feedings that was felt to be secondary to delayed gastric emptying. He was placed on metoclopramide and this seemed to help some, but still was having to spread the bolus feedings out further in smaller volumes and consequently was not getting adequate nutrition or hydration. He was switched to continuous G-tube feedings, which he seemed to tolerate it well. This provided him with adequate nutrition and hydration. He had a great deal of problem with severe dryness in his mouth as a result of the radiation and required continuous mouth care, hydration of his O2 and was treated for superimposed candidiasis. He completed his course of antibiotics for the superimposed pneumonia. Gradually, his condition was one of a little improvement, but then he steadily seemed to lose ground, became weaker and became more and more uncomfortable and restless. He was placed on Ativan for the restlessness and was placed on morphine sublingual for his generalized pain. Both of these medicine seemed to work very well and he seemed to relax and be a lot more comfortable. His family recognize that his condition was one of continual decline and they did not expect that he would survive this hospitalization. His condition continued to deteriorate early on the morning of 09/09, his O2 saturation dropped into the 70s on 4 L and his blood pressure was only 70/40. He was unresponsive. He was placed on a non-rebreathing mask and was given nebulization treatment. He remained unresponsive and O2 saturation continued to plummet into the 40s and then his respirations ceased and the patient . His family and daughter were with him. No resuscitative efforts were made per his DNR. The patient was seen at 0740 hours and was found to be without any vital signs, had no respirations or heart beat and pupils were dilated and fixed. The patient was pronounced . The cause of was secondary to respiratory failure, probably as a consequence of an aspiration, creating pneumonia in a gentleman with severe pulmonary fibrosis. Aspiration was result of the severe dysphagia that had occurred as results of his cancer of the mandible, surgery and radiation. Job ID: [id number] [facility] [place]
[2019-09-14] MEDS ORDERED: predniSONE 5 MG TAB PO SCH (09:00)
== END 2019-09-09 10:00 | disposition expired | DRG 947 ==
LOC: MADMS 12:10
PROVIDERS: ADMIT Family Medicine; ATTEND Family Medicine
DX: R53.1 Weakness (principal); J69.0 Pneumonitis due to inhalation of food and vomit; J96.21 Acute and chronic respiratory failure with hypoxia; C41.1 Malignant neoplasm of mandible; B37.0 Candidal stomatitis; R53.81 Other malaise; Z66 Do not resuscitate; J84.10 Pulmonary fibrosis, unspecified; R13.10 Dysphagia, unspecified; I73.9 Peripheral vascular disease, unspecified; R11.0 Nausea; I48.0 Paroxysmal atrial fibrillation; I95.9 Hypotension, unspecified; N32.81 Overactive bladder; Z88.8 Allergy status to other drugs, medicaments and biological substances; Z79.01 Long term (current) use of anticoagulants; Z93.1 Gastrostomy status; Z74.01 Bed confinement status; K30 Functional dyspepsia
CPT/HCPCS: 36415; 80053; 81001; 85025; 87086; J1650; J7512; J7611; Q0162